=== PATIENT | female | born 1945 | race Caucasian/White ===

== ENCOUNTER 2016-08-04 01:24 | Observation (INO) | payer OTHER ==
[~2016-08-04] VITALS: Ht 160 cm; Wt 65.0 kg
[2016-08-04] VITALS (11 sets, daily range): BP systolic 126–144; BP diastolic 45–76; PULSE 77–92; RESP 18–22; O2SAT 92–100
[~2016-08-04 01:24] MED LIST: ALBU8.5H4 IH; ANT25 PO; ATRINH IH; CENTRUM SILVER PO; CITRICAL PO; DIT5 PO; HYDR1TAB PO; OMEP20TA86 PO; SMV40T PO; SULF500T7 PO; TYL325 PO; VIT D PO
--- NOTE | 2016-08-04 01:40 | ED.REPORT ---
HPI-Chest Pain 40 and Over Date of Service Aug 04, 2016 ED Provider: Jadiel Soria DO Pt is a 71 y.o. female with a hx of recent AL (06/28/16) and COPD who presents to the ED via EMS c/o substernal chest pain onset today. Pt states that when she first noticed the pain she began to take a series of Nitro as prescribed, after the series was completed her pain had only improved mildly but she decided not to contact EMS at this point. Her chest pain then began to rapidly worsen so she called EMS for transport. Pt reports associated SOB and that her chest pain is exacerbated by inspiration. She reports taking Plavix and baby ASA daily.She denies a hx of DVT. Nursing Notes Stated Complaint: CHEST PAIN Chief Complaint: Chest Pain Nursing Notes Reviewed: Yes Allergies: Coded Allergies: formaldehyde (Verified Allergy, Unknown, WHEEZING, 11/27/15) Scheduled ([Centrum Silver]) 1 TAB PO BID ([Citrical + Vit D]) 250 MG PO DAILY Acetaminphen-Expunged Drug, Do Not Renew! (Acetaminphen-Expunged Drug, Do Not Renew!) 325 Mg Tablet 1,300 MG PO BID Omeprazole-Expunged Drug, Do Not Renew! (Omeprazole-Expunged Drug, Do Not Renew! ) 20 Mg Tablet.dr 20 MG PO DAILY Oxybutynin-Expunged Drug, Do Not Renew! (Ditropan-Expunged Drug, Do Not Renew!) 5 Mg Tablet 5 MG PO BID Simvastatin-Expunged Drug, Choose New Med! (Simvastatin-Expunged Drug, Choose New Med!) 40 Mg Tablet 40 MG PO HS Sulfasalazine-Expunged Drug, Do Not Renew! (Sulfasalazine-Expunged Drug, Do Not Renew!) 500 Mg Tablet 1,000 MG PO BID Scheduled PRN Albuterol-Expunged Drug, Do Not Renew! (Albuterol-Expunged Drug, Do Not Renew!) 8.5 Gm Hfa.aer.ad 2 PUFFS IH Q4 PRN PRN Hydrocod/APAP-Expunged, Do Not Renew! (VICODIN 5/500-Expunged Drug, Do Not Renew ) 1 Udtab Tablet 1 UDTAB PO Q4 PRN PRN Ipratropium-Expunged Drug, Do Not Renew! (Ipratropium-Expunged Drug, Do Not Renew!) 200 Puff/12.9 Gm Inhaler 2 PUFFS IH Q8 PRN PRN Meclizine-Expunged Drug, Do Not Renew! (Meclizine-Expunged Drug, Do Not Renew!) 25 Mg Tablet 25 MG PO Q8 PRN PRN General Time Seen by MD: 01:40 Chief Complaint Chest pain Hx Obtained From: Patient Arrived By: Ambulance Sudden in Onset?: Yes Onset Occurred: 1 - 4 hours ago Symptom Duration: Since onset Location: : Substernal Quality: Painful Severity: Current: Moderate Severity: Maximum: Severe Past Medical History Past Medical History Reports: COPD, Hypertension Past Surgical History Reports: Hysterectomy Smoking History Current Every Day Smoker Social History Alcohol Use: Denies alcohol use Drug Use: Denies drug use Occupation son and his and their child live with her. Would like them to get their own place but she feels the child gets better care with her at her house Review of Systems Constitutional: Denies: Chills, Fever Respiratory: Reports: Shortness of breath Cardiovascular: Reports: Chest pain GI: Denies: Diarrhea, Nausea, Vomiting Complete sys rev & neg: except as marked. Physical Exam Initial Vital Signs Vital Signs (First) Date Time Temp Pulse Resp B/P Pulse Ox O2 Delivery O2 Flow Rate FiO2 08/04/16 01:28 37.4 92 20 126/45 92 Room Air Initial VS: Reviewed Head / Eyes: Atraumatic, Normocephalic Extremities: Vascular intact, Neuro intact Skin: Warm, Dry, No cyanosis Neurologic: Alert, Oriented, Nonfocal Psychiatric: Mood/affect normal, Behavior normal, Normal thought content General/Constitutional: Awake, Alert, No acute distress, Well appearing, Well developed, Well hydrated, Well nourished, Not toxic appearing Respiratory / Chest: Atraumatic, Breath sounds NL, Breath sounds = bilat, No respiratory distress Cardiovascular: Heart rate NL, Regular rhythm, Heart sounds NL, Peripheral circulation NL Abdomen: Atraumatic, Soft, No distention Interpretation & Diagnostics Lab Results Interpretation Result Diagram: 08/04/16 0159 Test 08/04/16 01:30 08/04/16 01:59 Hold Purple Top Tube Received (Received) Hold Blue Top Tube Received (Received) Hold Red Top Tube Received (Received) Hold [place] Top Tube Received (Received) White Blood Count 11.8th/mm3 (3.8-10.1) Red Blood Count 2.86mil/mm3 (3.90-5.20) Hemoglobin 9.7g/dL (12.0-15.6) Hematocrit 30.7% (35.0-46.0) Mean Corpuscular Volume 107fL (81-100) Mean Corpuscular Hemoglobin 33.9pg (27.0-35.0) Mean Corpuscular Hemoglobin Concent 31.6% (32.0-37.0) Red Cell Distribution Width 15.7% (12.3-15.4) Platelet Count 281bil/L (150-400) Neutrophils (%) (Auto) 80.2% (40-74) Lymphocytes (%) (Auto) 9.7% (14-46) Monocytes (%) (Auto) 8.4% (4-12) Eosinophils (%) (Auto) 1.3% (0-5) Basophils (%) (Auto) 0.4% (0-3) D-Dimer 1.5mg/L (<0.50) Sodium Level 137mEq/L (134-144) Potassium Level 4.6mEq/L (3.5-5.2) Chloride Level 97mEq/L (97-108) Carbon Dioxide Level 24mmol/L (18-29) Blood Urea Nitrogen 25mg/dL (8-27) Creatinine 1.36mg/dL (0.57-1.00) Estimat Glomerular Filtration Rate 55mL/min (>59) Glucose Level 219mg/dL (60-99) Calcium Level 8.8mg/dL (8.5-10.1) Magnesium Level 1.8mg/dL (1.6-2.6) Total Bilirubin 0.3mg/dL (0.0-1.2) Aspartate Amino Transf (AST/SGOT) 68U/L (0-50) Alanine Aminotransferase (ALT/SGPT) 68U/L (0-32) Alkaline Phosphatase 141U/L (25-165) Troponin T 0.010ug/L (0.0-0.011) Total Protein 6.9g/dL (6.4-8.4) Albumin 3.7g/dL (3.4-5.0) Hold [place] Top Tube Received (Received) X-Ray Chest Interpretation Chest Xray Interpretation: IMPRESSION: No acute cardiopulmonary disease. Interpretation / Wet Read by: Wet read ED physician Re-Eval/Medical Decision Med Decision/Clinical Course 71-year-old female with history of coronary disease and myocardial infarction presents with severe left upper chest pain. She states that tonight the pain came on and it was sharp at first and then dull and achy. There is definitely respiratory component to it. She took 3 nitroglycerin with seemed to help. The pain then returned and was significantly worsened. She presents via EMS. On my examination she has some splinting with respirations. She has some coarse breath sounds bilateral but otherwise very benign examination. She does not have JVD. She does not have friction rub. Please see the remainder of the note for the rest of physical exam. EKG showed sinus rhythm with isoelectric ST segments and no evidence of ST elevation AL. Asked x-ray showed emphysematous changes and possibly atelectasis in the left base but otherwise no acute disease. First troponin is negative. D-dimer is quite elevated. She is currently being medicated with aspirin and a DuoNeb. DuoNeb was ordered because she seems to have developed some faint expiratory wheeze. IV steroids and been ordered as well. She is going to CT PE study here shortly. In the meantime I signed the case out to Dr. Johnson. Source of Hx: Old records Counseled Regarding: Diagnosis, Lab results Discharge & Departure Shift Change Sign-Out Patient Care Transferred: Yes Laboratory Evaluation: Ordered, not yet done Imaging Studies: Ordered, not yet done Procedures: Ordered, not yet done Response to Therapy: Improved Primary Impression: Chest pain Chest pain type: precordial chest pain Qualified Code: R07.2 - Precordial pain Additional Impression: Acute exacerbation of chronic bronchitis Disposition: ADMITTED TO HOSPITAL Discharge Condition All VS Reviewed: Yes Condition: Improved Referrals: OTHER,PHYSICIAN (PCP) Scribe Attestation Portions of this note were transcribed by Monica Plasencia. I, Dr. Soria personally performed the history, physical exam and medical decision-making; I reviewed and confirmed the accuracy of the information in the transcribed note. Signed by : Anand Beavers, 08/04/16 and 0225. Jadiel Soria DO Aug 04, 2016 01:40 MONICA PLASENCIA Aug 04, 2016 01:58
[2016-08-04] MEDS ORDERED: fentaNYL-PF 50 mCg/mL 2 mL Inj IVPUSH PRN (02:05)
[2016-08-04 02:13] LABS: BASOPHILS % (AUTO) 0.4 % (0-3); EOSINOPHILS % (AUTO) 1.3 % (0-5); MONOCYTES % (AUTO) 8.4 % (4-12); Mean Corpuscular Hemoglobin 33.9 pg (27.0-35.0); Mean Corpuscular Volume 107 fL (81-100); NEUTROPHILS % (AUTO) 80.2 % (40-74); Platelet Count 281 bil/L (150-400)
[2016-08-04] MEDS ORDERED: Albuterol-Ipratropium 3 mL Inhalation Solution NEB ONE (02:20)
[2016-08-04] MEDS ORDERED: MethylprednisoLONE Sodium Succinate 62.5 mg/mL 2 mL Inj IVPUSH ONE (02:20)
[2016-08-04] MEDS ORDERED: 0.9% Sodium Chloride 1,000 ML IV ONE (02:20)
[2016-08-04 02:34] LABS: TROPONIN T 0.01 ug/L (0.0-0.011)
[2016-08-04 02:42] LABS: Magnesium 1.8 mg/dL (1.6-2.6)
[2016-08-04] MEDS ORDERED: Alum-Mag Hydrox-Simeth 30 mL Suspension PO PRN (04:35)
[2016-08-04] MEDS ORDERED: Ondansetron 2 mg/mL 2 mL Inj IVPUSH PRN (04:35)
[2016-08-04] MEDS ORDERED: Atropine 1 mg/10 mL (Code) Syringe IVPUSH PRN (04:35)
[2016-08-04] MEDS ORDERED: Polyethylene Glycol (PEG) 17 Gm Powder PO PRN (04:35)
[2016-08-04] MEDS ORDERED: Senna-Docusate 8.6-50 mg Tablet PO PRN (04:35)
[2016-08-04 06:04] LABS: Creatine Kinase 34 U/L (21-215)
[2016-08-04] MEDS: 0.9% Sodium Chloride 1,000 ML IV SCH ×3 (06:38→22:48)
[2016-08-04] MEDS: Heparin 5,000 Unit/mL Inj SUBQ SCH ×2 (07:58→17:53)
[2016-08-04] MEDS: Sodium Chloride LOK Flush 10 mL Syringe IVFLUSH SCH ×2 (07:58→16:30)
--- NOTE | 2016-08-04 09:31 | DRSVH ---
PROCEDURE: X-RAY CHEST ONE VIEW, PORTABLE ([id number]) INDICATIONS: chest pain TECHNIQUE: One view of the chest was acquired. COMPARISON: [facility], CR, XR CHEST 1V PORTABLE, 06/28/2016, 10:11 PM. [facility], CR, CHEST 1VW (PORTABLE), 06/16/2009, 15:18. FINDINGS: Surgical changes and devices: None. Lungs and pleura: No pleural effusions or pneumothorax. Lungs are clear. Mediastinum: Mediastinal contours appear normal. Heart size is normal. Bones and chest wall: No suspicious bony lesions. Overlying soft tissues appear unremarkable. IMPRESSION: No acute cardiopulmonary disease. Dictated by: Tesfaye Thomas [facility] Interpreted: Torres Couch MD on 08/04/2016 at 9:29 Transcribed by: MALLORY on 08/04/2016 at 9:30 Approved by: Torres Couch M.D. on 08/04/2016 at 11:09
[2016-08-04] MEDS ORDERED: ACET325T51 PO (09:46)
[2016-08-04] MEDS ORDERED: MULT-1073 PO (09:46)
--- NOTE | 2016-08-04 09:47 | DRSVH ---
PROCEDURE: CT ANGIO CHEST PULMONARY EMBOLISM ([id number]) INDICATIONS: elevated dimer, sob TECHNIQUE: After the administration of intravenous contrast, 2 mm thick sections acquired from the pulmonary api crow to the posterior costophrenic angles. 3-dimensional maximum intensity projection (MIP) coronal a nd sagittal reformats were then acquired through the thorax. For radiation dose reduction, the follo wing was used: automated exposure control, adjustment of mA and/or kV according to patient size. COMPARISON: [facility], CR, XR CHEST 1VW (PORTABLE), 08/04/2016, 1:37. FINDINGS: Image quality: Excellent. Pulmonary arteries: Pulmonary arteries are normal in size, and demonstrate no intraluminal filling d efects to suggest central pulmonary embolism. Lungs and pleura: There is moderate centrilobular emphysema. Bilateral subpleural interstitial thick ening. A calcified granuloma is present in the right lower. Bibasilar dependent atelectasis are prese nt. No pulmonary infiltrate or consolidation. No pleural effusions or pneumothorax. Central and linda pheral airways are patent. Mediastinum: Heart size is normal, without pericardial effusion. No mediastinal or hilar adenopathy . There is mild to moderate atherosclerosis in coronary artery and thoracic aorta. Mild fusiform dil ation of the mid descending thoracic aorta measures 3.2 cm. There is intramural thrombus along the po sterior lateral descending thoracic aortic wall. Esophagus is normal in caliber, without hiatal herni a. Bones and chest wall: No suspicious bony lesions. Ribs and thoracic spine appear intact throughout. Thyroid gland is normal. No axillary or supraclavicular adenopathy. Abdomen: There is a large superior pole cyst in the left kidney measuring 4.8 cm. Visualized upper a bdominal solid organs appear normal in the early arterial phase of enhancement. IMPRESSION: 1. No evidence for acute central pulmonary embolism. 2. Moderate centrilobular emphysema. 3. Mild mid descending thoracic aortic aneurysm with intramural thrombus along the posterior lateral aortic wall. 4. Large left superior pole renal cyst. No significant discrepancy with the night court magistrate radiology preliminary report. Please note incidental findings not mention in the preliminary report. Dictated by: Torres Couch M.D. on 08/04/2016 at 9:35 Transcribed by: FAOROQ on 08/04/2016 at 9:47 Approved by: Torres Couch M.D. on 08/04/2016 at 10:50
[2016-08-04] MEDS ORDERED: CYAN10008 PO (09:51)
[2016-08-04] MEDS ORDERED: OMEG1CAP56 PO (09:51)
[2016-08-04] MEDS ORDERED: OXYB5TAB10 PO (09:53)
[2016-08-04] MEDS ORDERED: OMEP20CA11 PO (09:59)
[2016-08-04] MEDS ORDERED: ATOR40TA69 PO (09:59)
[2016-08-04] MEDS ORDERED: MECL-114 PO (09:59)
[2016-08-04] MEDS ORDERED: CALC-140 PO (10:06)
[2016-08-04] MEDS ORDERED: METF-777 PO (10:06)
[2016-08-04] MEDS ORDERED: LORA10CA PO (10:06)
[2016-08-04] MEDS ORDERED: HYDR12.5 PO (10:06)
[2016-08-04] MEDS ORDERED: AZU500 PO (10:06)
[2016-08-04] MEDS ORDERED: ALBU8.5H2 IH (10:15)
[2016-08-04] MEDS ORDERED: ALBU6.7H INH (10:15)
[2016-08-04] MEDS ORDERED: FERR-83 PO (10:33)
[2016-08-04] MEDS ORDERED: LISI-567 PO (10:33)
[2016-08-04] MEDS ORDERED: METO50TA3 PO (10:33)
[2016-08-04] MEDS ORDERED: POTA20PA12 PO (10:33)
[2016-08-04] MEDS ORDERED: NITR0.4T6 PO (10:33)
[2016-08-04] MEDS ORDERED: FURO40TA4 PO (10:33)
[2016-08-04] MEDS ORDERED: MAGN400T23 PO (10:33)
[2016-08-04 11:26] LABS: Creatine Kinase 32 U/L (21-215)
[2016-08-04 11:31] LABS: TROPONIN T < 0.010 ug/L (0.0-0.011)
--- NOTE | 2016-08-04 12:46 | DRSVH ---
[facility] [address] [place] [address] Echocardiogram Report Name: NEHA VÁZQUEZ PStudy Date: 08/04/2016 Height: 63 in Hospital Exam Location: [facility] Weight: 143 lb Gender: Female BSA: 1.7 m2 : 1945 Age: 71 yrs BP: 144/46 mmHg Reason For Study: Chest pain Ordering Physician: Performed By: Letitia Trinidad Referring Physician: [facility] Interpretation Summary Normal left ventricle size with ejection fraction 60-65%. Grade I diastolic dysfunction. Moderate aortic valve sclerosis. No valvular regurgitation. Procedure: A two-dimensional transthoracic echocardiogram with color flow and Doppler was performed. The study quality was technically adequate. The patient was in normal sinus rhythm during the exam. Left Ventricle: The left ventricle is normal in size. There is normal left ventricular wall thickness. The ejection fraction is estimated to be 60-65%. There are no focal wall motion abnormalities. The E/A ratio is reversed with an elevated E/E', suggesting impaired early relaxation of the left ventricle with possible increased filling pressures. Right Ventricle: The right ventricle is normal in size and function. Atria: Both atria are normal in size. There is no Doppler evidence for an interatrial shunt. Mitral Valve: The mitral valve leaflets appear thickened, but open well. There is no mitral regurgitation noted. Aortic Valve: The aortic valve is trileaflet. The aortic valve is mildly calcified. There is moderate aortic valve sclerosis. No aortic regurgitation is present. Tricuspid Valve: The tricuspid valve is not well visualized, but is grossly normal. Pulmonary artery pressures cannot be estimated because of the lack of a measurable TR jet velocity. Pulmonic Valve: The pulmonic valve is not well seen, but is grossly normal. There is a trace or physiologic amount of pulmonic regurgitation. Great Vessels: The aortic root is normal size. The ascending aorta is normal in size. The aortic arch could not be visualized. The IVC is of normal diameter and collapses greater than 50% with a sniff. This suggests a low right atrial pressure of 3 mm Hg. Pericardium/ Pleura There is an anterior echo-free space consistent with a fat pad. MMode/2D Measurements & Calculations LVIDd: 4.4 cm RA long axis LVOT diam LVIDs: 2.9 cm LA A2 area: 14.3 cm FS: 34.7 % LA A4 area: 15.4 cm RA area Ao root diam IVSd: 0.85 cm LA length (vol): 5.1 cm LVPWd: 0.99 cm LA vol: 36.4 ml : 9.3 cm Aortic Jxn LA vol index RA vol: 19.5 ml RA asc Aorta : 11.6 mm2 Diam: 3.1 cm IVC diam: 1.6 cm LV marquez. diameter/BSA LV sys. diameter/BSA (cm/m^2): 2.7 (cm/m^2): 1.7 Doppler Measurements & Calculations Ao V2 max MV E max wiflredo MV E/A: 0.76 PA V2 max : 200.9 cm/sec : 90.8 cm/sec Med Peak E' Wilfredo : 92.1 cm/sec Ao max PG MV A max wilfredo PA mean PG : 16.1 mmHg : 119.9 cm/sec E/E' med: 23.8 Ao mean PG MV P1/2t: 58.4 msec Lat Peak E' Wilfredo PA Accel Time : 0.11 sec LVOT Max Wilfredo E/E' lat: 14.4 : 71.8 cm/sec E/e' average: 19.1 Pulm A Revs Dur MINA(I,D): 1.2 cm sev ratio MV A dur: 0.12 sec MV dec time MV P1/2t max wilfredo Ao V2 mean LV V1 max PG : 0.20 sec : 140.0 cm/sec MVA(P1/2t): 3.8 cm2 Ao V2 VTI: 41.9 cm LV V1 VTI MINA(V,D): 1.1 cm2 : 16.3 cm PA V2 mean MINA indexed to BSA Anupam Quintero Dur - MV A : 63.7 cm/sec (cm^2/m^2): 0.72 Dur: -0.04 msec Electronically signed by: Estella Chaves on Reading Physician:08/04/2016 12:45 PM
--- NOTE | 2016-08-04 13:11 | NUR ---
Social Work- Initial Assessment/Readiness for Discharge Data: Pt is a 71 y/o female admitted on 08/04/16 for chest pain resolved SOB per EMR. Insurance is [place] and PCP is [facility]. EMR reviewed. Pt's readmit risk score is not available. PERRY met with pt and her son Mark at bedside to discuss discharge planning. PERRY role explained. Pt is oriented x3. [place] [id number], and grandchild. Unit is one level with two steps to enter. Pt remains independent with ADL's, drives POV and uses no DME. Pt has no HH or SNF history. Pt has received DPOA/Advance Directive paperwork and plans to complete and provide hospital with a copy. Per rounds this morning pt is likely to discharge tomorrow. Pt's family to provide transport home at discharge. SW provided phone number and plan on white board in room. SW will continue to follow. Assessment: Pt who resides with family and is independent at baseline. P: Patient likely to discharge home tomorrow via POV with no needs. SUJATA Marcano Addendum: 08/04/16 at 1324 by SAMANTHA CAM SS Amended: Links added.
--- NOTE | 2016-08-04 14:06 | PCM.HPMED ---
Subjective Date of Service Aug 04, 2016 Primary Provider: Admitting Physician: Dewayne Otero MD [facility] Phys[facility] Attending Physician: Dewayne Otero MD Chief Complaint: chest pain History of Present Illness: 71 year old female with history of DM, COPD, CAD (nonobstructive per recent cath on 06/2016) who was recently hospitalized at [facility] on 06/2016 with diagnosis of NSTEMI, NICM, and non-obstructive CAD presents with complaint of acute left sided chest pain. She notes that the left sided chest pain began yesterday afternoon after eating an apple pie. She took three SL NTG before the pain subsided. However, she had reoccurrence of the pain again late last night that persisted till this morning. She notes that the pain is worse with deep breathing and somewhat sharp in nature. She otherwise denies any other associated symptoms such as nausea, vomiting, diaphoresis, SOB, lightheadedness , or palpitations. The pain is non-radiating. ROS is otherwise negative except patient reporting about 18 lb unintentional weight loss over the past 6-7 months and somewhat chronic shooting pain and paraesthesia down the left hip and thigh. Allergies Coded Allergies: formaldehyde (Verified Allergy, Severe, Wheezing and cannot breathe, ) Home Medications Loratadine 10 Mg Capsule (Claritin) 10 Mg PO DAILY Anti-Infective Agents Sulfasalazine 500 Mg Tablet 1,000 Mg PO BID Autonomic Drugs Albuterol HFA 8.5 Gm Hfa.Aer.Ad (Proair HFA) 2 Puff IH TID Albuterol Sulfate 6.7 Gm Hfa.Aer.Ad (Proventil HFA Inhaler) 2 Puff INH Q4 PRN PRN For Wheezing PRN For Wheezing Blood Formation,Coagulation & Ferrous Sulfate 325 Mg Tablet 325 Mg PO DAILY Cardiovascular Drugs Atorvastatin Calcium 40 Mg Tablet 40 Mg PO DAILY Cholesterol Cholesterol Lisinopril 20 Mg Tablet 20 Mg PO DAILY Metoprolol Tartrate 50 Mg Tablet 50 Mg PO BID Nitroglycerin SL 0.4 Mg Tab.Subl 0.4 Mg PO PRN PRN For Chest Pain PRN For Chest Pain [place]-3 Fatty Acids/Fish Oil 1 Each Capsule ([place] 3 1,000 mg Softgel) 1 Capsule PO DAILY Central Nervous System Agents Acetaminophen 325 Mg Tablet 650 Mg PO BID Calcium Carbonate/Vitamin D3 1 Each Tablet (Calcium + Vitamin D Tablet) 1 Tablet PO DAILY Calcium-D3 1200 mg-1000IU Furosemide 40 Mg Tablet 40 Mg PO DAILY Hydrochlorothiazide 12.5 Mg Capsule 12.5 Mg PO DAILY Potassium Chloride 20 Meq Packet (Potassium Chloride Powder) 20 Meq PO BIDWM Gastrointestinal Drugs Magnesium Oxide 400 Mg Tablet (Mag-Oxide) 400 Mg PO DAILY Meclizine 25 Mg Tab.Chew ([place]) 25 Mg PO TID PRN PRN For Dizziness PRN For Dizziness Omeprazole 20 Mg Capsule.Dr 20 Mg PO DAILY Stomach acid Stomach acid Take 1 capsule by mouth before BREAKFAST Hormones And Synthetic Substit Metformin HCl 500 Mg Moittgh16p (Metformin HCl ER) 500 Mg PO BID Smooth Muscle Relaxants Oxybutynin Chloride 5 Mg Tablet 5 Mg PO BID Bladder spasm Bladder spasm Exam Vital Signs & I/O Vital Sign- Last 8 Hours Date Time Temp Pulse Resp B/P Pulse Ox O2 Delivery O2 Flow Rate FiO2 08/04/16 10:57 36.4 84 20 134/76 98 Room Air 08/04/16 10:45 84 Intake and Output- Last 8 Hour 08/04/16 Cumulative From/Thru 07:00 08/04/16 01:28 - 08/04/16 05:36 Intake Total 1000 ml 1000 ml Balance 1000 ml 1000 ml Intake IV Total 1000 ml 1000 ml Lab & Micro Results Laboratory Tests Test 08/04/16 01:30 08/04/16 01:59 08/04/16 04:53 08/04/16 10:28 Hold Purple Top Tube Received (Received) Hold Blue Top Tube Received (Received) Hold Red Top Tube Received (Received) Hold [place] Top Tube Received (Received) White Blood Count 11.8th/mm3 (3.8-10.1) Red Blood Count 2.86mil/mm3 (3.90-5.20) Hemoglobin 9.7g/dL (12.0-15.6) Hematocrit 30.7% (35.0-46.0) Mean Corpuscular Volume 107fL (81-100) Mean Corpuscular Hemoglobin 33.9pg (27.0-35.0) Mean Corpuscular Hemoglobin Concent 31.6% (32.0-37.0) Red Cell Distribution Width 15.7% (12.3-15.4) Platelet Count 281bil/L (150-400) Neutrophils (%) (Auto) 80.2% (40-74) Lymphocytes (%) (Auto) 9.7% (14-46) Monocytes (%) (Auto) 8.4% (4-12) Eosinophils (%) (Auto) 1.3% (0-5) Basophils (%) (Auto) 0.4% (0-3) D-Dimer 1.5mg/L (<0.50) Sodium Level 137mEq/L (134-144) Potassium Level 4.6mEq/L (3.5-5.2) Chloride Level 97mEq/L (97-108) Carbon Dioxide Level 24mmol/L (18-29) Blood Urea Nitrogen 25mg/dL (8-27) Creatinine 1.36mg/dL (0.57-1.00) Estimat Glomerular Filtration Rate 55mL/min (>59) Glucose Level 219mg/dL (60-99) Calcium Level 8.8mg/dL (8.5-10.1) Magnesium Level 1.8mg/dL (1.6-2.6) Total Bilirubin 0.3mg/dL (0.0-1.2) Aspartate Amino Transf (AST/SGOT) 68U/L (0-50) Alanine Aminotransferase (ALT/SGPT) 68U/L (0-32) Alkaline Phosphatase 141U/L (25-165) Troponin T 0.010ug/L (0.0-0.011) 0.010ug/L (0.0-0.011) < 0.010ug/L (0.0-0.011) Total Protein 6.9g/dL (6.4-8.4) Albumin 3.7g/dL (3.4-5.0) Hold [place] Top Tube Received (Received) Total Creatine Kinase 34U/L (21-215) 32U/L (21-215) Creatine Kinase MB 1.1ng/mL (0.0-5.3) 1.0ng/mL (0.0-5.3) Creatine Kinase MB % % (0.0-5.0) % (0.0-5.0) Result Diagram: 08/04/16 0159 08/04/16 0159 Review of Systems: Constitutional: Negative, except as otherwise mentioned in the history above. Ophthalmologic: Negative, except as otherwise mentioned in the history above. Cardiovascular: Negative, except as otherwise mentioned in the history above. Respiratory: Negative, except as otherwise mentioned in the history above. Gastrointestinal: Negative, except as otherwise mentioned in the history above. Genitourinary: Negative, except as otherwise mentioned in the history above. Musculoskeletal: Negative, except as otherwise mentioned in the history above. Neurological: Negative, except as otherwise mentioned in the history above. Psychiatric: Negative, except as otherwise mentioned in the history above. Hematologic/Lymphatic: Negative, except as otherwise mentioned in the history above. Allergic/Immunologic: Negative, except as otherwise mentioned in the history above. PMH 1. NSTEMI (with noted mildly elevated Trop during hospitalization at [facility] on 06/2016) 2. NICM (LVEF 37-40% on GBMT per d/c summary from 06/2016) 3. CAD (nonobstructive per cath report on 06/2016) 4. DM II 5. COPD 6. Arthritis Cardiac cath at [facility] from 06/2016: " Moderate diffusely calcified coronary arteries. Mild coronary artery disease involving all coronaries. No focal flow limiting lesions." Surgical History post bilateral salpingo-oophorectomy with resulting bladder damage in distant past Family History Father with lung cancer Social History Hx Alcohol Use: No Hx Substance Use: No Hx Tobacco Use: Yes (smoked 3-4 packs of cig per day until Jun 2016.) Smoking Status: Former Smoker Exam Vital Signs Vital Sign - Last Date Time Temp Pulse Resp B/P Pulse Ox O2 Delivery O2 Flow Rate FiO2 08/04/16 10:57 36.4 84 20 134/76 98 Room Air Intake and Output 08/03/16 08/03/16 08/04/16 Cumulative From/Thru 15:00 23:00 07:00 08/04/16 01:28 - 08/04/16 05:36 Intake Total 1000 ml 1000 ml Balance 1000 ml 1000 ml Intake IV Total 1000 ml 1000 ml General: Alert, Oriented X3, Cooperative, No Acute Distress Head: Normal Eyes: PERRLA, EOMI, Scleral Anicteric Nose: Mucous Membr Moist/[place] Mouth: Mucous Membr Moist/[place] Neck: Supple Chest & Lungs: Chest Wall Normal, Clear to auscultation & percussion Cardiovascular: Regular Rate/Rhythm Pulses: NL carotid, radial, femoral, DP, PT Abdomen: Non-tender, Non-distended, Normoactive bowel tones, Soft Extremities: No cyanosis/clubbing/edma bilat Skin: Other (no ulcer or rash) Neurological: Grossly Neurologically Intact, Normal Speech Lab and Diagnostics Result Diagram: 08/04/1615808/04/16158 X-Rays, CTs and MRIs Date of Service: 08/04/16 0125 PROCEDURE: X-RAY CHEST ONE VIEW, PORTABLE ([id number]) IMPRESSION: No acute cardiopulmonary disease. Dictated by: Tesfaye Thomas RRA Interpreted: Torres Couch MD on 08/04/2016 at 9:29 Transcribed by: MALLORY on 08/04/2016 at 9:30 Approved by: Torres Couch M.D. on 08/04/2016 at 11:09 Date of Service: 08/04/16 0252 PROCEDURE: CT ANGIO CHEST PULMONARY EMBOLISM ([id number]) IMPRESSION: 1. No evidence for acute central pulmonary embolism. 2. Moderate centrilobular emphysema. 3. Mild mid descending thoracic aortic aneurysm with intramural thrombus along the posterior lateral aortic wall. 4. Large left superior pole renal cyst. 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 Please note incidental findings not mention in the preliminary report. Dictated by: Torres Couch M.D. on 08/04/2016 at 9:35 Transcribed by: FAROOQ on 08/04/2016 at 9:47 Approved by: Torres Couch M.D. on 08/04/2016 at 10:50 12-lead ECG NSR. no significant ST elevation or depression Cardiac Echo Impressions Date of Service: 08/04/16 0800 Echocardiogram Report Interpretation Summary Normal left ventricle size with ejection fraction 60-65%. Grade I diastolic dysfunction. Moderate aortic valve sclerosis. No valvular regurgitation. Electronically signed by: Estella Chaves on Reading Physician:08/04/2016 12:45 PM Assessment & Plan 71 year old female with history of DM, COPD, CAD (nonobstructive per recent cath on 06/2016) presenting with pleuritic chest pain. # Acute chest pain. present on admission. - unclear etiology - pulmonary embolism ruled out with negative CTA chest - rule out ACS by cycling Trop - Echo unremarkable with intact EF despite report of reduced EF of 30% per ventriculography from recent hospitalization on 06/2016 at [facility] - She had negative cardiac cath between 06/30 adn 07/05/2016. will not pursue any further cardiac workup at this time if her Trop continue to remain negative - c/w supportive care and pain control as needed # Recent report of non-ischemic cardiomyopathy, present on admission - appears resolved per echocardiogram earlier today - will stop Lisinopril and diuretics given evidence of CARLI at this time # Acute kidney injury, present on admission. - likely pre-renal from recent diuretic medications - hold nephrotoxic meds - gentle IVF - f/u repeat labs in am - check UA # History of diabetes mellitus - hold home metformin - ISS - check HgA1C # History of COPD. stable - c/w home inhalers as needed # History of non-obstructive CAD. presumed stable - c/w home dose ASA, Statin and metoprolol - further w/u as noted above Expected length of hospital stay at this time is less than 2 midnights and likely home tomorrow pending resolution of CARLI and CP GI Prophylaxis: Proton Pump Inhibitor VTE Prophylaxis: Sub-Q Heparin (Unfractionated) Resuscitation Status: CPR: Attempt Resuscitation (discussed and verified with patient) Time spent 65 min Wolfgang Mane Aug 04, 2016 14:06
[2016-08-04] MEDS ORDERED: Albuterol 2.5 mg/3 mL Inhalation Solution NEB PRN (14:39)
[2016-08-04] MEDS: Insulin LISPRO Low-Dose Scale SUBQ SCH ×2 (17:00→22:00)
[2016-08-04] MEDS ORDERED: Insulin Human REGular 300 Unit/3 mL Inj SUBQ SCH (17:00)
--- NOTE | 2016-08-04 17:37 | NUR ---
No CP, Blood sugars No CPs this shift, intermittent achiness "Not anything like before". Blood sugars elevated, provider notified. SS insulin ordered. BS trending down this shift without intervention.
[2016-08-04 18:22] LABS: APPEARANCE,URINE CLEAR (CLEAR,HAZY); COLOR,URINE YELLOW (YELLOW); OCCULT BLOOD,URINE SMALL (NEGATIVE); UROBILINOGEN,URINE NORMAL (NORMAL)
[2016-08-04] MEDS ORDERED: Sulfasalzine 500 mg Tablet PO SCH (20:30)
--- NOTE | 2016-08-04 23:31 | NUR ---
Note No c/o chest pain/discomfort. Telemetry SR in 70s. Up using bsc independently. Report to [facility] RN given.
[2016-08-05] MEDS: Sodium Chloride LOK Flush 10 mL Syringe IVFLUSH SCH ×2 (00:30→08:30)
[2016-08-05] MEDS: Heparin 5,000 Unit/mL Inj SUBQ SCH ×2 (00:30→09:43)
[2016-08-05 01:20] VITALS: BP 130/66; PULSE 57; RESP 18; O2SAT 95
[2016-08-05 04:55] VITALS: BP 171/62; PULSE 67; O2SAT 95
[2016-08-05] MEDS ORDERED: Pantoprazole 40 mg ER24 Tablet PO SCH (06:30)
--- NOTE | 2016-08-05 06:46 | NUR ---
Noc activity Pt denies chest pain, sob, n/v or abd discomfort. VSS and pt has been afebrile overnight. Monitor karl reports no abnormal rhythmic episodes. Intentional hourly rounding done and pt has slept most of the night.
[2016-08-05 07:03] LABS: BASOPHILS % (AUTO) 0.5 % (0-3); EOSINOPHILS % (AUTO) 2.8 % (0-5); MONOCYTES % (AUTO) 9.4 % (4-12); Mean Corpuscular Hemoglobin 34.2 pg (27.0-35.0); Mean Corpuscular Volume 105.6 fL (81-100); Platelet Count 279 bil/L (150-400)
[2016-08-05] MEDS: Insulin LISPRO Low-Dose Scale SUBQ SCH (07:30)
[2016-08-05 09:54] VITALS: BP 175/68; PULSE 76; RESP 20; O2SAT 98
[2016-08-05 10:07] VITALS: PULSE 67
--- NOTE | 2016-08-05 10:13 | PCM.DIMED ---
Discharge Instructions Date of Service Aug 05, 2016 Dates of Hospitalization Aug 04, 2016 at 04:47 Discharge Diagnosis Discharge Diagnosis # Acute chest pain. present on admission. Resolved - unclear etiology - pulmonary embolism ruled out with negative CTA chest - ruled out acute myocardial infarction with negative cardiac enzymes (Troponin) - Echocardiogram: "Normal left ventricle size with ejection fraction 60-65%." # Acute kidney injury, present on admission. - likely pre-renal from recent diuretic medications - Resolved with IV fluids. # Acute transaminitis of unclear etiology. present on admission. - Need to followup with primary care provider for further workup or to ensure resolution. # Positive bacteruria and possible asymptomatic urinary tract infection. present on admission - final urine cultures pending at time of discharge and need to be followed up with primary care provider in coming days # History of diabetes mellitus. stable - HgA1C 5.2 # History of COPD. stable # History of non-obstructive CAD. presumed stable Diet Low fat, Low Sodium, Heart Healthy, Diabetic Activity No restrictions Call your provider Fever or Chills, Shortness of breath, Chest pain, Vomitting Patient Instructions Seek immediate medical attention if any new or worsening signs or symptoms occur Follow-up plan 1. Followup with primary care provider in 2-5 days to followup on final urine culture result, followup on liver enzymes, and adjust medications as needed. 2. Followup with your cardiac monitor technician as soon as possible. Follow-up Provider: ANNETTE FLORESTX Wolfgang Musa Aug 05, 2016 10:13
--- NOTE | 2016-08-05 10:31 | NUR ---
Social Work: Discharge Data: Pt is on day 1 of hospitalization. EMR reviewed. D/C orders are in. No d/c planning needs at this time. SOLAR MANUFACTURER'S REPRESENTATIVE will continue to follow if needs arise. Assessment: Pt who is independent at baseline. Plan: Pt will d/c home via POV today. No d/c planning needs at this time. SOLAR MANUFACTURER'S REPRESENTATIVE will continue to follow if needs arise. SUJATA De Paz
--- NOTE | 2016-08-05 12:20 | NUR ---
Discharge: Patient discharged to home @ approx 1200. IV d/c'd intact, telemetry removed, case monitor notified. Personal belongings sent home with patient. Reviewed home medication list, d/c instructions and follow up appointments. Verbalized understanding. Escorted to main entrance via wheelchair accompanied by family and COORDINATOR OF PLACEMENT.
--- NOTE | 2016-08-05 16:55 | PCM.DC.MED ---
Discharge Summary Date of Service Aug 05, 2016 Dates of Hospitalization Date of Hospital Admission Aug 04, 2016 at 04:47 Date of Discharge: Aug 05, 2016 Providers: Admitting Physician: Dewayne Otero MD [facility]ending Phys[facility]: Dewayne Otero MD Diagnosis at Time of Discharge Diagnosis at Time of Discharge # Acute chest pain. present on admission. Resolved - unclear etiology - pulmonary embolism ruled out with negative CTA chest - ruled out acute myocardial infarction with negative cardiac enzymes (Troponin) - Echocardiogram: "Normal left ventricle size with ejection fraction 60-65%." # Acute kidney injury, present on admission. - likely pre-renal from recent diuretic medications - Resolved with IV fluids. # Acute transaminitis of unclear etiology. present on admission. - Need to followup with primary care provider for further workup or to ensure resolution. # Positive bacteruria and possible asymptomatic urinary tract infection. present on admission - final urine cultures pending at time of discharge and need to be followed up with primary care provider in coming days # History of diabetes mellitus. stable - HgA1C 5.2 # History of COPD. 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 Dictated by: Tesfaye Thomas [facility] Interpreted: Torres Couch MD on 08/04/2016 at 9:29 Transcribed by: MALLORY on 08/04/2016 at 9:30 Approved by: Torres Couch M.D. on 08/04/2016 at 11:09 Date of Service: 08/04/16 0252 PROCEDURE: CT ANGIO CHEST PULMONARY EMBOLISM ([id number]) IMPRESSION: 1. No evidence for acute central pulmonary embolism. 2. Moderate centrilobular emphysema. 3. Mild mid descending thoracic aortic aneurysm with intramural thrombus along the posterior lateral aortic wall. 4. Large left superior pole renal cyst. 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 Please note incidental findings not mention in the preliminary report. Dictated by: Torres Couch M.D. on 08/04/2016 at 9:35 Transcribed by: FAROOQ on 08/04/2016 at 9:47 Approved by: Torres Couch M.D. on 08/04/2016 at 10:50 ECG 12 Lead [address]. no significant ST elevation or depression Cardiac Echo Impression Date of Service: 08/04/16 0800 Echocardiogram Report Interpretation Summary Normal left ventricle size with ejection fraction 60-65%. Grade I diastolic dysfunction. Moderate aortic valve sclerosis. No valvular regurgitation. Electronically signed by: Estella Chaves on Reading Physician:08/04/2016 12:45 PM Brief History 71 year old female with history of DM, COPD, CAD (nonobstructive per recent cath on 06/2016) who was recently hospitalized at [facility] on 06/2016 with diagnosis of NSTEMI, NICM, and non-obstructive CAD presents with complaint of acute left sided chest pain. She notes that the left sided chest pain began yesterday afternoon after eating an apple pie. She took three SL NTG before the pain subsided. However, she had reoccurrence of the pain again late last night that persisted till this morning. She notes that the pain is worse with deep breathing and somewhat sharp in nature. She otherwise denies any other associated symptoms such as nausea, vomiting, diaphoresis, SOB, lightheadedness , or palpitations. The pain is non-radiating. ROS is otherwise negative except patient reporting about 18 lb unintentional weight loss over the past 6-7 months and somewhat chronic shooting pain and paraesthesia down the left hip and thigh. Hospital Course # Acute chest pain. present on admission. - unclear etiology - pulmonary embolism ruled out with negative CTA chest - ruled out ACS by cycling Trop - Echo unremarkable with intact EF despite report of reduced EF of 30% per ventriculography from recent hospitalization on 06/2016 at [facility] - She had negative cardiac cath between 06/30 adn 07/05/2016. will not pursue any further cardiac workup at this time - c/w home cardiac meds and f/u w/ cardiology as outpatient as previously planned # Recent report of non-ischemic cardiomyopathy, present on admission - appears resolved per echocardiogram during this hospital # Acute kidney injury, present on admission. - likely pre-renal from recent diuretic medications - Resolved with gentle IVF - further f/u as outpatient # Acute transaminitis of unclear etiology. present on admission. - pt insists on being discharged today and wishes to f/u w/ PCP as outpatient - Need to followup with primary care provider for further workup or to ensure resolution. # Positive bacteruria and possible asymptomatic urinary tract infection. present on admission - final urine cultures pending at time of discharge and need to be followed up with primary care provider in coming days - given otherwise asymptomatic no Abx started at this time # History of diabetes mellitus - HgA1C 5.2 # History of COPD. stable - c/w home inhalers as needed # History of non-obstructive CAD. presumed stable - c/w home dose ASA, Statin and metoprolol - further w/u as noted above by day of d/c lungs CTA bilat. Abdomen soft, nt, nd, +bs. CV: RRR. Exam Vital Signs (Last) Date Time Temp Pulse Resp B/P Pulse Ox O2 Delivery O2 Flow Rate FiO2 08/05/16 10:07 67 08/05/16 09:54 36.5 20 175/68 98 Room Air Test 08/04/16 01:30 08/04/16 01:59 08/04/16 10:28 08/04/16 17:55 Hold Purple Top Tube Received (Received) Hold Blue Top Tube Received (Received) Hemoglobin A1c 5.2% (4.8-5.6) Hold Red Top Tube Received (Received) Hold [place] Top Tube Received (Received) D-Dimer 1.5mg/L (<0.50) Hold [place] Top Tube Received (Received) Total Creatine Kinase 32U/L (21-215) Creatine Kinase MB 1.0ng/mL (0.0-5.3) Creatine Kinase MB % % (0.0-5.0) Troponin T < 0.010ug/L (0.0-0.011) Urine Color Yellow (YELLOW) Urine Appearance Clear (CLEAR,HAZY) Urine pH 7.0 (5.0-8.0) Urine Specific [place] <1.005 (1.003-1.035) Urine Protein Negativemg/dL (NEG,TRACE) Urine Glucose (UA) Negativemg/dL (NEGATIVE) Urine Ketones Negativemg/dL (NEGATIVE) Urine Occult Blood Small (NEGATIVE) Urine Nitrite Negative (NEGATIVE) Urine Bilirubin Negative (NEGATIVE) Urine Urobilinogen Normalmg/dL (NORMAL) Urine Leukocyte Esterase Small (NEGATIVE) Urine RBC 0-2/hpf (0-2) Urine WBC >50/hpf (0-5) Urine Epithelial Cells Few/hpf (NONE-MOD) Urine Crystals None seen (NONE SEEN) Urine Bacteria Few/hpf (NONE-FEW) Urine Hyaline Casts None/lpf (NONE) Urine Granular Casts None seen (NONE SEEN) Urine Waxy Casts None seen (NONE SEEN) Urine Red Blood Cell Casts None seen (NONE SEEN) Urine White Blood Cell Casts None seen (NONE SEEN) Urine Mucus None seen (None Seen) Urine Trichomonas None seen (NONE SEEN) Urine Yeast None (NONE SEEN) Urinalysis Comment None Urine Culture Reflexed Indicated Test 08/05/16 06:20 White Blood Count 7.9th/mm3 (3.8-10.1) Red Blood Count 2.69mil/mm3 (3.90-5.20) Hemoglobin 9.2g/dL (12.0-15.6) Hematocrit 28.4% (35.0-46.0) Mean Corpuscular Volume 105.6fL (81-100) Mean Corpuscular Hemoglobin 34.2pg (27.0-35.0) Mean Corpuscular Hemoglobin Concent 32.4% (32.0-37.0) Red Cell Distribution Width 15.3% (12.3-15.4) Platelet Count 279bil/L (150-400) Neutrophils (%) (Auto) 62.0% (40-74) Lymphocytes (%) (Auto) 24.9% (14-46) Monocytes (%) (Auto) 9.4% (4-12) Eosinophils (%) (Auto) 2.8% (0-5) Basophils (%) (Auto) 0.5% (0-3) Sodium Level 140mEq/L (134-144) Potassium Level 4.7mEq/L (3.5-5.2) Chloride Level 104mEq/L (97-108) Carbon Dioxide Level 23mmol/L (18-29) Blood Urea Nitrogen 23mg/dL (8-27) Creatinine 1.00mg/dL (0.57-1.00) Estimat Glomerular Filtration Rate 79mL/min (>59) Glucose Level 106mg/dL (60-99) Calcium Level 9.0mg/dL (8.5-10.1) Magnesium Level 2.0mg/dL (1.6-2.6) Total Bilirubin 0.5mg/dL (0.0-1.2) Aspartate Amino Transf (AST/SGOT) 72U/L (0-50) Alanine Aminotransferase (ALT/SGPT) 110U/L (0-32) Alkaline Phosphatase 121U/L (25-165) Total Protein 6.2g/dL (6.4-8.4) Albumin 3.4g/dL (3.4-5.0) Triglycerides Level 85mg/dL (0-149) Cholesterol Level 170mg/dL (100-199) LDL Cholesterol, Calculated 86.000mg/dL (0-99) VLDL Cholesterol 17.000mg/dL HDL Cholesterol 67mg/dL (>39) Cholesterol/HDL Ratio 2.54 (0.0-4.4) Discharge Medications Discharge Medications Acetaminophen (Acetaminophen) 325 Mg Tablet 650 MG PO BID (Reported) Albuterol HFA (Proair HFA) 8.5 Gm Hfa.aer.ad 2 PUFF IH TID (Reported) Atorvastatin Calcium (Atorvastatin Calcium) 40 Mg Tablet 40 MG PO DAILY ( Reported) Calcium Carbonate/Vitamin D3 (Calcium + Vitamin D Tablet) 1 Each Tablet 1 TABLET PO DAILY (Reported) Calcium-D3 1200 mg-1000IU Cyanocobalamin (Vitamin B-12) (Vitamin B-12) 1,000 Mcg Tablet 1,500 MCG PO DAILY (Reported) Ferrous Sulfate (Ferrous Sulfate) 325 Mg Tablet 325 MG PO DAILY (Reported) Hydrochlorothiazide (Hydrochlorothiazide) 12.5 Mg Capsule 12.5 MG PO DAILY ( Reported) Lisinopril (Lisinopril) 20 Mg Tablet 20 MG PO DAILY (Reported) Loratadine (Claritin) 10 Mg Capsule 10 MG PO DAILY (Reported) Magnesium Oxide (Mag-Oxide) 400 Mg Tablet 400 MG PO DAILY (Reported) Metformin HCl (Metformin HCl ER) 500 Mg [id number] 500 MG PO BID (Reported) Metoprolol Tartrate (Metoprolol Tartrate) 50 Mg Tablet 50 MG PO BID (Reported) Multivits-Min/FA/Lycopene/Lut (Centrum Silver Tablet) 1 Each Tablet 1 TABLET PO DAILY (Reported) [place]-3 Fatty Acids/Fish Oil ([place] 3 1,000 mg Softgel) 1 Each Capsule 1 CAPSULE PO DAILY (Reported) Omeprazole (Omeprazole) 20 Mg Capsule.dr 20 MG PO DAILY (Reported) Take 1 capsule by mouth before BREAKFAST Oxybutynin Chloride (Oxybutynin Chloride) 5 Mg Tablet 5 MG PO BID (Reported) Sulfasalazine (Sulfasalazine) 500 Mg Tablet 1,000 MG PO BID (Reported) As needed Albuterol Sulfate (Proventil HFA Inhaler) 6.7 Gm Hfa.aer.ad 2 PUFF INH Q4 PRN PRN For Wheezing (Reported) Meclizine (Bonine) 25 Mg Tab.chew 25 MG PO TID PRN PRN For Dizziness (Reported) Nitroglycerin SL (Nitroglycerin SL) 0.4 Mg Tab.subl 0.4 MG PO PRN For Chest Pain (Reported) Followup Plan Disposition: Home Follow-up plan 1. Followup with primary care provider in 2-5 days to followup on final urine culture result, followup on liver enzymes, and adjust medications as needed. 2. Followup with your corporate law assistant as soon as possible. Discharge Diet: Low fat, Low Sodium, Heart Healthy, Diabetic Discharge Activity: No restrictions Patient Instructions Seek immediate medical attention if any new or worsening signs or symptoms occur Follow-up Provider: ANNETTE FLORESCA SABA Time spent 35 min copies to: [facility] Wolfgang Mane Aug 05, 2016 16:55
== END 2016-08-05 12:10 | disposition home or self-care (01) ==
LOC: SED 01:24 → MPC 04:47
PROVIDERS: ADMIT Hospitalist; ATTEND Internal Medicine
DX: R07.9 Chest pain, unspecified (principal); N17.9 Acute kidney failure, unspecified; R74.0 Nonspecific elevation of levels of transaminase and lactic acid dehydrogenase [LDH]; N39.0 Urinary tract infection, site not specified; I25.10 Atherosclerotic heart disease of native coronary artery without angina pectoris; J44.9 Chronic obstructive pulmonary disease, unspecified; I10 Essential (primary) hypertension; F17.210 Nicotine dependence, cigarettes, uncomplicated; Z90.710 Acquired absence of both cervix and uterus; Z88.8 Allergy status to other drugs, medicaments and biological substances; Z86.73 Personal history of transient ischemic attack (TIA), and cerebral infarction without residual deficits; E11.9 Type 2 diabetes mellitus without complications; Z79.84 Long term (current) use of oral hypoglycemic drugs
CPT/HCPCS: 36415; 71010; 71275; 80053; 80061; 81000; 82550; 82553; 82948; 83036; 83735; 84484; 85025; 85379; 87077; 87086; 87088; 87186; 93005; 94664; 96361; 96374; 96375; 99285; C8929; G0378; J1644; J1815; J2930; J3010; J7030; J7620; Q9967

== ENCOUNTER 2016-08-09 08:07 | Inpatient (IN) | payer OTHER ==
[~2016-08-09] VITALS: Ht 160 cm; Wt 67.0 kg
[2016-08-09] VITALS (11 sets, daily range): BP systolic 95–129; BP diastolic 41–78; PULSE 68–120; RESP 14–22; O2SAT 92–98
[~2016-08-09 08:07] MED LIST changes: +ACET325T51 PO; +ALBU6.7H INH; +ALBU8.5H2 IH; -ALBU8.5H4 IH; -ANT25 PO; +ATOR40TA69 PO; -ATRINH IH; +AZU500 PO; +CALC-140 PO; -CENTRUM SILVER PO; -CITRICAL PO; +CYAN10008 PO; -DIT5 PO; +FERR-83 PO; +HYDR12.5 PO; -HYDR1TAB PO; +LISI-567 PO; +LORA10CA PO; +MAGN400T23 PO; +MECL-114 PO; +METF-777 PO; +METO50TA3 PO; +MULT-1073 PO; +NITR0.4T6 PO; +OMEG1CAP56 PO; +OMEP20CA11 PO; -OMEP20TA86 PO; +OXYB5TAB10 PO; -SMV40T PO; -SULF500T7 PO; -TYL325 PO; -VIT D PO
--- NOTE | 2016-08-09 08:10 | ED.REPORT ---
HPI-Chest Pain 40 and Over Date of Service Aug 09, 2016 ED Provider: Yolanda Sharpe MD Pt is a 71 y.o. female with a hx of NSTEMI, DM, COPD, and CAD who presents to the ED via EMS c/o chest pain, exacerbated by movement and deep inspiration, described as "squeezing" onset 2 days ago. Pt reports associated mild SOB, nausea, non-productive cough, chills, and fever (subjective). She denies vomiting. She claims that she did not take her NTG as she thought the pain was due to GERD and was too nauseated to take her morning medications. EMS reports administering 324 ASA, 2 NTG, and 5mg IV Morphine en-route. Upon arrival pt states her pain is rated at a 3. Pt was recently admitted to the hospital (08/04-08/05/16) for left-sided chest pain, she had a negative echocardiogram and CTA and her sx were resolved upon discharge. She states her current sx are similar to her recent ED visit. The pt was also hospitalized at [place] on 2016 with a diagnosis of NSTEMI, NICM, and non-obstructive CAD (per cath). Nursing Notes Stated Complaint: CHEST PAIN Chief Complaint: Chest Pain Nursing Notes Reviewed: Yes Allergies: Coded Allergies: formaldehyde (Verified Allergy, Severe, Wheezing and cannot breathe, ) Scheduled Acetaminophen (Acetaminophen) 325 Mg Tablet 650 MG PO BID Albuterol HFA (Proair HFA) 8.5 Gm Hfa.aer.ad 2 PUFF IH BID Aspirin (Aspirin) 81 Mg Tablet 81 MG PO DAILY Atorvastatin Calcium (Atorvastatin Calcium) 40 Mg Tablet 40 MG PO DAILY Cholecalciferol (Vitamin D3) (Vitamin D3) 5,000 Unit Tablet 5,000 UNIT PO DAILY Cyanocobalamin (Vitamin B-12) (Vitamin B-12) 1,000 Mcg Tablet 1,500 MCG PO DAILY Loratadine (Claritin) 10 Mg Capsule 10 MG PO DAILY Magnesium Oxide (Mag-Oxide) 400 Mg Tablet 400 MG PO DAILY Metformin HCl (Metformin HCl ER) 500 Mg [id number] 500 MG PO BID Metoprolol Tartrate (Metoprolol Tartrate) 50 Mg Tablet 50 MG PO BID Multivits-Min/FA/Lycopene/Lut (Centrum Silver Tablet) 1 Each Tablet 1 TABLET PO DAILY [place]-3 Fatty Acids/Fish Oil ([place] 3 1,000 mg Softgel) 1 Each Capsule 1 CAPSULE PO DAILY Omeprazole (Omeprazole) 20 Mg Capsule.dr 20 MG PO DAILY Take 1 capsule by mouth before BREAKFAST Oxybutynin Chloride (Oxybutynin Chloride) 5 Mg Tablet 5 MG PO BID Sulfasalazine (Sulfasalazine) 500 Mg Tablet 1,000 MG PO BID Scheduled PRN Albuterol Sulfate (Proventil HFA Inhaler) 6.7 Gm Hfa.aer.ad 2 PUFF INH Q4 PRN PRN For Wheezing Meclizine (Bonine) 25 Mg Tab.chew 25 MG PO TID PRN PRN For Dizziness Nitroglycerin SL (Nitroglycerin SL) 0.4 Mg Tab.subl 0.4 MG PO PRN For Chest Pain Miscellaneous Medications Iron (Iron) 18 Mg Tablet 65 MG PO General Time Seen by MD: 08:09 Chief Complaint Chest pain Hx Obtained From: Patient, EMS Arrived By: Ambulance Sudden in Onset?: Yes Onset Occurred: 2 days ago Symptom Duration: Since onset Location: : Chest left: Chest right Quality: Painful Severity: Current: Pain level 3 out of 10 Severity: Maximum: Severe Recent Healthcare: Recent hospitalization Similar Sx Previous: Yes Past Medical History Past Medical History Hx of NSTEMI and nonobstructive CAD per cath 06/2016 Reports: COPD, Coronary artery disease, Diabetes mellitus, Hypertension Past Surgical History Reports: Hysterectomy Smoking History Former Smoker Social History Alcohol Use: Denies alcohol use Drug Use: Denies drug use Occupation son and his and their child live with her. Would like them to get their own place but she feels the child gets better care with her at her house Review of Systems Constitutional: Reports: Chills, Fever (Subjective) Respiratory: Reports: Non-productive cough, Pleuritic pain, Shortness of breath Cardiovascular: Reports: Chest pain GI: Reports: Nausea, Denies: Vomiting Complete sys rev & neg: except as marked. Physical Exam Initial Vital Signs Vital Signs (First) Date Time Temp Pulse Resp B/P Pulse Ox O2 Delivery O2 Flow Rate FiO2 08/09/16 08:09 120 15 116/53 98 Nasal Cannula 2 Initial VS: Reviewed Head / Eyes: Atraumatic, Normocephalic Extremities: Vascular intact, Neuro intact Skin: Warm, Dry, No cyanosis Neurologic: Alert, Oriented, Nonfocal Psychiatric: Mood/affect normal, Behavior normal, Normal thought content General/Constitutional: Awake, Alert, No acute distress, Well appearing, Well developed, Well hydrated, Well nourished, Not toxic appearing Respiratory / Chest: Atraumatic, Breath sounds NL, Breath sounds = bilat, No respiratory distress, No chest tenderness Cardiovascular: Regular rhythm Heart Rate / Rhythm: Positive: Tachycardia No lower extremity edema Abdomen: Atraumatic, Soft, Non-tender, BS normoactive, No distention Interpretation & Diagnostics Lab Results Interpretation Result Diagram: 08/09/16 0810 08/09/16 0810 Test 08/09/16 08:10 08/09/16 09:18 08/09/16 09:25 08/09/16 09:40 White Blood Count 18.3th/mm3 (3.8-10.1) Red Blood Count 2.68mil/mm3 (3.90-5.20) Hemoglobin 9.0g/dL (12.0-15.6) Hematocrit 27.6% (35.0-46.0) Mean Corpuscular Volume 103.0fL (81-100) Mean Corpuscular Hemoglobin 33.6pg (27.0-35.0) Mean Corpuscular Hemoglobin Concent 32.6% (32.0-37.0) Red Cell Distribution Width 15.2% (12.3-15.4) Platelet Count 428bil/L (150-400) Neutrophils (%) (Auto) 77.2% (40-74) Lymphocytes (%) (Auto) 12.2% (14-46) Monocytes (%) (Auto) 9.6% (4-12) Eosinophils (%) (Auto) 0.4% (0-5) Basophils (%) (Auto) 0.3% (0-3) Sodium Level 135mEq/L (134-144) Potassium Level 5.0mEq/L (3.5-5.2) Chloride Level 98mEq/L (97-108) Carbon Dioxide Level 22mmol/L (18-29) Blood Urea Nitrogen 15mg/dL (8-27) Creatinine 0.96mg/dL (0.57-1.00) Estimat Glomerular Filtration Rate 82mL/min (>59) Glucose Level 151mg/dL (60-99) Calcium Level 9.2mg/dL (8.5-10.1) Magnesium Level 1.6mg/dL (1.6-2.6) Total Bilirubin 0.5mg/dL (0.0-1.2) Aspartate Amino Transf (AST/SGOT) 26U/L (0-50) Alanine Aminotransferase (ALT/SGPT) 46U/L (0-32) Alkaline Phosphatase 120U/L (25-165) Troponin T 0.010ug/L (0.0-0.011) Total Protein 7.2g/dL (6.4-8.4) Albumin 3.5g/dL (3.4-5.0) Lactic Acid Level 1.3mmol/L (0.4-2.0) Hold Blue Top Tube Received (Received) Urine Color Yellow (YELLOW) Urine Appearance Cloudy (CLEAR,HAZY) Urine pH 5.5 (5.0-8.0) Urine Specific [place] 1.019 (1.003-1.035) Urine Protein Negativemg/dL (NEG,TRACE) Urine Glucose (UA) Negativemg/dL (NEGATIVE) Urine Ketones Negativemg/dL (NEGATIVE) Urine Occult Blood Small (NEGATIVE) Urine Nitrite Negative (NEGATIVE) Urine Bilirubin Negative (NEGATIVE) Urine Urobilinogen Normalmg/dL (NORMAL) Urine Leukocyte Esterase Moderate (NEGATIVE) Urine RBC 0-2/hpf (0-2) Urine WBC >50/hpf (0-5) Urine Epithelial Cells Occasional/hpf (NONE-MOD) Urine Crystals None seen (NONE SEEN) Urine Bacteria Few/hpf (NONE-FEW) Urine Hyaline Casts None/lpf (NONE) Urine Granular Casts None seen (NONE SEEN) Urine Waxy Casts None seen (NONE SEEN) Urine Red Blood Cell Casts None seen (NONE SEEN) Urine White Blood Cell Casts None seen (NONE SEEN) Urine Mucus None seen (None Seen) Urine Trichomonas None seen (NONE SEEN) Urine Yeast None (NONE SEEN) Urinalysis Comment None Urine Culture Reflexed Indicated ECG Interpretation ECG Interpretation: No ischemia Atrial premature complex Interpreted by: ED physician Normal ECG Interpretation: Normal sinus rhythm Rhythm / Conduction: Tachycardia (116) X-Ray Chest Interpretation Chest Xray Interpretation: IMPRESSION: Left basilar pneumonia with small parapneumonic effusion. Dictated by: Abril Valentine M.D. on 08/09/2016 at 8:59 Approved by: Abril Valentine M.D. on 08/09/2016 at 8:59 Re-Eval/Medical Decision Med Decision/Clinical Course 71-year-old presents with increasing chest pain. Discharged home less than 48 hours ago with cardiac workup that suggested non-cardiac chest pain. She notes that she is getting worse with increasing shortness of breath the pain is worse with deep breathing and worse when she lays back. Initial white count is significantly elevated which is a change from her previous admission. She is moderately hypoxic and returns to the upper 90s on 2 L of room air. Workup reveals left-sided lower lobe pneumonia lactic acid is normal she is initially hypotensive and tachycardic. BP responds nicely to fluids. Sat 2 L at rest 98%. Walking on RA they drop to 75%, with deep breathing can get up to high 80's. At this point, normotensive, HR 90s. significantly hypoxic with ambulation (not chronically hypoxic) . will need admission until hypoxia improves Source of Hx: Old records Time of Eval: 09:07 Re-Evaluation/Progress Note: Discussed with pt imaging results and possible need for admit. Pt understands and agrees with plan. Time of Eval: 10:38 Patient Status: Pain improved Re-Evaluation/Progress Note: Pt rechecked. Pt states her pain has improved. Discussed plan for road test to determine if pt should be discharged or admitted. Pt understands and agrees with plan. Consultation : Referral / Consult Name: Vern Nguyen MD Consulted With: Hospitalist Call Returned at: 11:44 Educational Institution President: Will see patient, Agrees with eval, Agrees with plan, Accepts admit Note: Discussed pt condition. Accepts admit. Discussed whether pneumonia was hospital or community aquired. Due to pt having pain with previous visit and no cardiac etiology she was likely developing it then and it is most likely community aquired. likely community aquired Counseled Regarding: Diagnosis, Lab results, Need for follow-up, When/why to return to ED Discharge & Departure Primary Impression: Pneumonia Pneumonia type: due to unspecified organism Laterality: left Lung location : lower lobe of lung Qualified Code: J18.9 - Pneumonia, unspecified organism Additional Impression: Hypoxia Disposition: ADMITTED TO HOSPITAL Discharge Condition All VS Reviewed: Yes Condition: Improved [facility] Scribe Attestation Portions of this note were transcribed by Monica Plasencia. I, Dr. Sharpe personally performed the history, physical exam and medical decision-making; I reviewed and confirmed the accuracy of the information in the transcribed note. Signed by: Anand Beavers, 08/09/16 and 1150. copies to: [facility] Yolanda Sharpe MD Aug 09, 2016 08:10 MONICA PLASENCIA Aug 09, 2016 08:39 MONICA PLASENCIA Aug 09, 2016 08:39
[2016-08-09 08:53] LABS: BASOPHILS % (AUTO) 0.3 % (0-3); EOSINOPHILS % (AUTO) 0.4 % (0-5); MONOCYTES % (AUTO) 9.6 % (4-12); Mean Corpuscular Hemoglobin 33.6 pg (27.0-35.0); NEUTROPHILS % (AUTO) 77.2 % (40-74); Platelet Count 428 bil/L (150-400)
--- NOTE | 2016-08-09 09:01 | DRSVH ---
PROCEDURE: X-RAY CHEST ONE VIEW, PORTABLE ([id number]) INDICATIONS: CP TECHNIQUE: One view of the chest was acquired. COMPARISON: [facility], CT, CT ANGIO CHEST PE, 08/04/2016, 3:19. [facility], CR, XR CHEST 1VW (PORTABLE), 08/04/2016, 1:37. FINDINGS: Surgical changes and devices: None. Lungs and pleura: No pneumothorax. Small left pleural effusion. Moderate left basilar airspace opaci ty. Mediastinum: Mediastinal contours appear normal. Heart size is normal. Bones and chest wall: No suspicious bony lesions. Overlying soft tissues appear unremarkable. IMPRESSION: Left basilar pneumonia with small parapneumonic effusion. Dictated by: Abril Valentine M.D. on 08/09/2016 at 8:59 Approved by: Abril Valentine M.D. on 08/09/2016 at 8:59
[2016-08-09] MEDS ORDERED: 0.9% Sodium Chloride 1,000 ML IV ONE (09:03)
[2016-08-09] MEDS ORDERED: levoFLOXacin Inj 750 MG in IV Premix 1 EACH IV ONE (09:05)
[2016-08-09] MEDS ORDERED: Vancomycin Dose per Pharmacist XX ONE (09:05)
[2016-08-09] MEDS ORDERED: Piperacillin-Tazo 3.375 Gm Inj 3.375 GM in Dextrose 5% Minibag Plus 50 ML IV ONE (09:05)
[2016-08-09] MEDS ORDERED: Vancomycin Inj 1,250 MG in 0.9% Sodium Chloride 250 ML IV ONE (09:15)
[2016-08-09 09:35] LABS: Magnesium 1.6 mg/dL (1.6-2.6); TROPONIN T 0.01 ug/L (0.0-0.011)
[2016-08-09 10:33] LABS: APPEARANCE,URINE CLOUDY (CLEAR,HAZY); COLOR,URINE YELLOW (YELLOW); OCCULT BLOOD,URINE SMALL (NEGATIVE); PH,URINE 5.5 (5.0-8.0); UROBILINOGEN,URINE NORMAL (NORMAL)
[2016-08-09] MEDS ORDERED: ASPI-973 PO (11:49)
[2016-08-09] MEDS ORDERED: Alum-Mag Hydrox-Simeth 30 mL Suspension PO PRN (11:50)
[2016-08-09] MEDS ORDERED: Polyethylene Glycol (PEG) 17 Gm Powder PO PRN (11:50)
[2016-08-09] MEDS ORDERED: CHOL500011 PO (11:52)
[2016-08-09] MEDS ORDERED: IRON18TA PO (11:55)
[2016-08-09] MEDS ORDERED: Magnesium Sulf 4 Gm/100 mL H2O 4 GM in IV Premix 1 EACH IV ONE (12:25)
--- NOTE | 2016-08-09 13:11 | NUR ---
Admit Patient arrived to room 238-1 via wheelchair from ED at 1235. Pt ambulated to bed, steady on feet. IV SL. Denies pain. Patient on RA, Sp02 96%, denies SOB. Admit and med rec completed by admit nurse.
[2016-08-09] MEDS ORDERED: 0.9% NaCl + KCl 20 mEq/L 1,000 ML IV SCH (14:50)
[2016-08-09] MEDS ORDERED: Albuterol 2.5 mg/3 mL Inhalation Solution NEB PRN (16:00)
[2016-08-09] MEDS ORDERED: 0.9% Sodium Chloride 1,000 ML IV SCH (16:10)
[2016-08-09] MEDS: Sodium Chloride LOK Flush 10 mL Syringe IVFLUSH SCH ×2 (16:30→21:29)
--- NOTE | 2016-08-09 18:08 | NUR ---
Tachycardia Per planetarium technician patient tele sinus tach since admit 100's to 1teens. Patient has gone up to 120's around 1710 and then to 130's briefly during activity, and now back down to 1teens -120's. Hospitalist made aware. No new orders, and advised to continue to monitor.
--- NOTE | 2016-08-09 19:16 | PCM.HPMED ---
Subjective Date of Service Aug 09, 2016 Primary Provider: Admitting Physician: Vern Nguyen MD [facility] Attending Physician: Vern Nguyen MD Chief Complaint: Severe pain in upper chest and shortness of breath. History of Present Illness: The patient is a 71 year old female with history of DM, COPD, CAD ( nonobstructive per recent cath on 06/2016) who was recently hospitalized at [facility] on 06/2016 with diagnosis of NSTEMI, NICM, and non-obstructive CAD who was admitted to [facility] with complaint of acute left sided chest pain on 08/04/2016.. She notes that the left sided chest pain began 1 day prior to admission after eating a piece of apple pie. She took three SL NTG before the pain subsided. However, she had reoccurrence of the pain again late night prior to admission which lasted until the morning of admission.. She notes that the pain is worse with deep breathing and somewhat sharp in nature. She otherwise denies any other associated symptoms such as nausea, vomiting, diaphoresis, SOB, lightheadedness, or palpitations. The pain is non-radiating. The patient was brought into the hospitalist service under observation and her troponins were negative so acute coronary syndrome was ruled out. A CT angiogram was performed and ruled out a pulmonary embolism. The patient's pain eventually subsided and the patient was discharged home on . Then at noon on 08/08/2016 patient developed chest pain again which was exacerbated by movement and deep inspiration. The pain was described as a "squeezing" sensation. The discomfort lasted until 5 AM this morning and patient started getting short of breath. Patient then decided to come to the emergency room. She called 911 and EMS administered 324 mg of aspirin, 2 nitroglycerin and 5 mg IV morphine and route to the emergency room. Upon arrival the patient stated that her pain is rated as a 3 and a scale 1-10. She stated that her current symptoms are similar to when she had during her recent hospitalization. Patient was evaluated in the emergency room by Dr. Yolanda Hopkins who ordered a chest x-ray which showed a left basilar pneumonia with small parapneumonic effusion. EKG showed no ischemia and atrial premature complexes almost sinus rhythm with some tachycardia rate of 116. The patient's white blood cell count was found to be markedly elevated. The patient was admitted to the hospitalist service for further evaluation and treatment. Review of Systems: General: Patient has no fever chills or sweats. She has no significant cough. She does feel warm and apparently has not taken her temperature at home. HEENT: Patient has no headache, patient has no diplopia, patient has no changes in vision. The patient does wear corrective lenses. Patient has no problems with her ears or nose. She does have a mild sore throat. Patient has had all of her teeth removed. She does not wear her dentures as they do not fit right and actually hurt her more when she is eating and she does not wear them. Patient has no history of thrush. Neck: Patient has no stiffness in the neck. Patient has no lymphadenopathy. Patient has no other problems with their neck. Pulmonary: The patient has a history of COPD. The patient has a history of bronchial pneumonia once in the past. Patient has shortness of breath. However , she has no significant cough, no expectoration of sputum. Patient has pleuritic chest pain associated with deep breathing and coughing. Patient has chest pain in her upper chest in the subclavicular area on both sides of the chest. Cardiovascular: Patient has chest pain in the bilateral subclavicular area. The patient is very similar to the pain that she came in with her last admission between 08/04/2016 to 08/05/2016. Patient has no history of heart murmur. Patient has no palpitations. Patient has a history of myocardial infarction in June 2016 and was treated at a hospital in [facility]. Patient has no evidence of occlusive coronary artery disease on cardiac catheterization in June 2016. Gastrointestinal: Patient has no history of hepatitis A, B or C. Patient has no history of peptic ulcer disease. Patient has no history of gastroesophageal reflux disease. Patient has no history of nausea, vomiting, or diarrhea. Patient has no history of hematemesis, hematochezia, or melena. Patient has no history of colitis. Renal: Patient has no history of kidney disease. No history of kidney stones. Genitourinary: Patient has no history of dysuria, frequency, or incontinence. Patient has no previous history of genitourinary problems. Musculoskeletal: Patient has no history of muscular skeletal problems. Neurologic: Patient has no history of stroke, no history of seizure, no history of TIA. Psychiatric: Patient has been under treatment as well as stressor last 2 years. The patient states that she has been living with her son and granddaughter and [id number]-miy and also her son charlotte. The charlotte apparently is a convicted sex offender. The court system stated that her son charlotte could live in the home only if the patient's 10-year-old granddaughter was taken out of the home. Therefore the patient lived in a hotel room for the last 2 years with her son charlotte in order to "keep her family together". The plan was to stay in the home toe room until the patient's son charlotte turned 18 which would occur on August 25 of this year. However, the patient suffered a non-ST elevated myocardial infarction likely due to the stress surrounding this whole living arrangement. That is when the patient's son Mark stepped in and help her parole officers came up with other living arrangements for his charlotte. The remainder of the entire review of systems was reviewed with patient and is as mentioned above otherwise negative. Allergies Coded Allergies: formaldehyde (Verified Allergy, Severe, Wheezing and cannot breathe, ) Home Medications Scheduled Acetaminophen (Acetaminophen) 325 Mg Tablet 650 MG PO BID Albuterol HFA (Proair HFA) 8.5 Gm Hfa.aer.ad 2 PUFF IH BID Aspirin (Aspirin) 81 Mg Tablet 81 MG PO DAILY Atorvastatin Calcium (Atorvastatin Calcium) 40 Mg Tablet 40 MG PO DAILY Cholecalciferol (Vitamin D3) (Vitamin D3) 5,000 Unit Tablet 5,000 UNIT PO DAILY Cyanocobalamin (Vitamin B-12) (Vitamin B-12) 1,000 Mcg Tablet 1,500 MCG PO DAILY Loratadine (Claritin) 10 Mg Capsule 10 MG PO DAILY Magnesium Oxide (Mag-Oxide) 400 Mg Tablet 400 MG PO DAILY Metformin HCl (Metformin HCl ER) 500 Mg Ilwimsm40d 500 MG PO BID Metoprolol Tartrate (Metoprolol Tartrate) 50 Mg Tablet 50 MG PO BID Multivits-Min/FA/Lycopene/Lut (Centrum Silver Tablet) 1 Each Tablet 1 TABLET PO DAILY [place]-3 Fatty Acids/Fish Oil ([place] 3 1,000 mg Softgel) 1 Each Capsule 1 CAPSULE PO DAILY Omeprazole (Omeprazole) 20 Mg Capsule.dr 20 MG PO DAILY Take 1 capsule by mouth before BREAKFAST Oxybutynin Chloride (Oxybutynin Chloride) 5 Mg Tablet 5 MG PO BID Sulfasalazine (Sulfasalazine) 500 Mg Tablet 1,000 MG PO BID Scheduled PRN Albuterol Sulfate (Proventil HFA Inhaler) 6.7 Gm Hfa.aer.ad 2 PUFF INH Q4 PRN PRN For Wheezing Meclizine (Bonine) 25 Mg Tab.chew 25 MG PO TID PRN PRN For Dizziness Nitroglycerin SL (Nitroglycerin SL) 0.4 Mg Tab.subl 0.4 MG PO PRN For Chest Pain PMH Patient has a history of COPD Patient has a history of diabetes mellitus is not insulin-dependent Patient has a history of hypertension Patient had a non-ST elevated myocardial infarction and underwent a coronary artery catheterization on 06/29/2016 and was found to have no significant occlusion. She did not require any stenting. The myocardial infarction was felt to be stress related. Patient had a recent cardiac workup here at [facility] during an observation admission from 08/04/2016 to which was negative. Surgical History Patient has had a total abdominal hysterectomy and bilateral salpingo- oophorectomy in the past The patient has had all of her teeth removed The patient denies any other surgeries. Family History The patient's mother at the age of 58 from having poor cardiac and pulmonary function after motor vehicle accident. The patient's father at the age of 53 or 54 from lung cancer. The patient has 1 sister who she knows nothing about her medical history. Patient had one brother who of unknown causes other than he was an alcoholic. Social History Hx Alcohol Use: Yes (The patient drank for a few years well in the [employer] but then quit.) Hx Substance Use: No Hx Tobacco Use: Yes (The patient smoked 3-4 packs of cig per day until Jun 282016. She quit on that day when she was told that she had a "heart attack") Smoking Status: Former Smoker Living Arrangement: with Family Additional Information The patient was born in [place], [place]. Her father was an alcoholic and he moved the family to various places in the country. Patient ended up getting a GED in [place]. As patient did not finish high school. Patient began smoking at the age of 8 and she got up to 1 pack per day for approximately 36 years and quit 06/28/2016. Patient was to her first for 2 years and had one son Mark. Patient was to her second for 13 years and he . Patient lived in [place] and then in [place] and she works as an provider relations manager. 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 Patient now lives in [place] with her son Len and wujxhvai-mk-ogu and granddaughter. Wednesday. Son is now out of the house. And he turns 18 this month. The patient has been under tremendous stress lately due to her son's rezaon being a convicted sex offender. So in court order to keep the family together" the patient lived with her son's charlotte in a hotel room for almost 2 years so that her son and her puaceboh-he-pvv and granddaughter could continue living in her home. After she had a heart attack which sounds stress-induced, she moved back into her own home and her son found other arrangements for his stepson with the help of his parole officers. Exam Vital Signs Vital Sign - Last Date Time Temp Pulse Resp B/P Pulse Ox O2 Delivery O2 Flow Rate FiO2 08/09/16 17:43 37.2 111 14 128/76 92 Room Air 08/09/16 12:23 2 Exam General: Patient is in no apparent distress. HEENT: Head is atraumatic and normocephalic. Eyes: Pupils are equally round and reactive to light and accommodation. Extraocular muscles are intact. Sclera are white, anicteric. Subconjunctival mucosa is pink. Ears and nose are unremarkable. Oropharynx: There is no mucosal lesions, there is no thrush, there is no pharyngitis. Patient is edentulous. Neck: Is supple, there are no nodes, or masses or tenderness. Chest: Is significant for left lower lobe rales and diminished breath sounds. Heart: Rate, rhythm is regular. There is no murmur, rub or gallop. Heart tones are distant. Abdomen: Good bowel sounds are present. Abdomen is obese, soft, nontender, no organomegaly or masses were appreciated. Extremities: Are symmetrical and well perfused. There is no edema, there is no cellulitis, no rash. Neurologic: There are no focal neurological deficits. Cranial nerves II through XII are intact. There are no sensory or motor deficits. Psychiatric: Patients mood is calm and shows no sign of agitation. Genital: Deferred Rectal: Deferred Lab and Diagnostics Result Diagram: 08/09/1680908/09/16809 Microbiology Blood and urine cultures are pending Name: GURPREETNEHA Priscila Age/Sex: 71/F Attend Dr: Dewayne Otero MD Acct: [id number] Unit: [id number] Status: DIS Lizzie [place] [facility] [place] 3007-1 Re08/04/16 Disch: 08/05/16 Specimen: [id number] Collected: 08/04/16 Status: COMP Req#: [id number] Received: 08/04/16 Source: RANDOM Sp Desc : Subm Dr: Wolfgang Mnae Ordered: URINE CULT Procedure Result Verified Site Microbiology [facility] CULT URINE Final 08/06/16-49 Organism 1 ENTEROCOC FAECALIS - (GROUP D) U COLONY COUNT/QUANTITY >100,000 CFU/ml For Enterococcus species, cephalosporins, aminoglycosides (except high level resistance screening), clindamycin, and trimethoprim-sulfamethoxazole are not effective clinically and should not be used. If penicllin is susceptible, ampicllin and amoxicillin can be considered as valid treatment options for urinary tract infections. (M100S 26th ed. CLSI 2016) 1. ENTEROCOC FAECALIS - (GROUP D) M.I.C Interp --------- ------ * CIPROFLOXACIN <=0.5 S * LEVOFLOXACIN 1 S * NITROFURANTOIN <=16 S * PENICILLIN-G 4 S * TETRACYCLINE <=1 S * VANCOMYCIN 1 S X-Rays, CTs and MRIs PROCEDURE: X-RAY CHEST ONE VIEW, PORTABLE ([id number]) INDICATIONS: CP TECHNIQUE: One view of the chest was acquired. COMPARISON: [facility], CT, CT ANGIO CHEST PE, 08/04/2016, 3:19. [facility], CR, XR CHEST 1VW (PORTABLE), 08/04/2016, 1:37. FINDINGS: Surgical changes and devices: None. Lungs and pleura: No pneumothorax. Small left pleural effusion. Moderate left basilar airspace opacity. Mediastinum: Mediastinal contours appear normal. Heart size is normal. Bones and chest wall: No suspicious bony lesions. Overlying soft tissues appear unremarkable. IMPRESSION: Left basilar pneumonia with small parapneumonic effusion. Dictated by: Abril Valentine M.D. on 08/09/2016 at 8:59 Approved by: Abril Valentine M.D. on 08/09/2016 at 8:59 Cardiac Echo Impressions Echocardiogram Report Name: NEHA VÁZQUEZ PStudy Date: 08/04/2016 Height: 63 in Hospital Exam Location: [facility] Weight: 143 lb Gender: Female BSA: 1.7 m2 : 1945 Age: 71 yrs BP: 144/46 mmHg Reason For Study: Chest pain Ordering Physician: Performed By: Letitia Trinidad Referring Physician: [facility] Interpretation Summary Normal left ventricle size with ejection fraction 60-65%. Grade I diastolic dysfunction. Moderate aortic valve sclerosis. No valvular regurgitation. Assessment & Plan The patient is a 71 year old female with history of DM, COPD, CAD ( nonobstructive per recent cath on 06/2016) who was recently hospitalized at [facility] on 06/2016 with diagnosis of NSTEMI, NICM, and non-obstructive CAD who was admitted to [facility] with complaint of acute left sided chest pain on 08/04/2016.. She notes that the left sided chest pain began 1 day prior to admission after eating a piece of apple pie. She took three SL NTG before the pain subsided. However, she had reoccurrence of the pain again late night prior to admission which lasted until the morning of admission.. She notes that the pain is worse with deep breathing and somewhat sharp in nature. She otherwise denies any other associated symptoms such as nausea, vomiting, diaphoresis, SOB, lightheadedness, or palpitations. The pain is non-radiating. The patient was brought into the hospitalist service under observation and her troponins were negative so acute coronary syndrome was ruled out. A CT angiogram was performed and ruled out a pulmonary embolism. The patient's pain eventually subsided and the patient was discharged home on . Then at noon on 08/08/2016 patient developed chest pain again which was exacerbated by movement and deep inspiration. The pain was described as a "squeezing" sensation. The discomfort lasted until 5 AM this morning and patient started getting short of breath. Patient then decided to come to the emergency room. She called 911 and EMS administered 324 mg of aspirin, 2 nitroglycerin and 5 mg IV morphine and route to the emergency room. Upon arrival the patient stated that her pain is rated as a 3 and a scale 1-10. She stated that her current symptoms are similar to when she had during her recent hospitalization. Patient was evaluated in the emergency room by Dr. Yolanda Hopkins who ordered a chest x-ray which showed a left basilar pneumonia with small parapneumonic effusion. EKG showed no ischemia and atrial premature complexes almost sinus rhythm with some tachycardia rate of 116. The patient's white blood cell count was found to be markedly elevated. The patient was admitted to the hospitalist service for further evaluation and treatment. # Acute chest pain and shortness of breath. present on admission. - Patient now has what appears to be pneumonia of the left lower lobe with a parapneumonic effusion. This diagnosis is supported by leukocytosis on admission CBC. Differential diagnosis includes: A) Left lower lobe pneumonia with peripneumonic effusion and leukocytosis B) Sravani syndrome after myocardial infarction - At this point would be prudent to treat the patient for pneumonia with parapneumonic effusion as this can be life-threatening. Patient was given healthcare associated pneumonia antibiotics in the emergency room per protocol. We will streamline the antibiotics to Levaquin 500 mg IV every 24 hours. - We will repeat chest x-ray in a.m. - Acute respiratory failure with hypoxia secondary to above - A pulmonary embolism was ruled out with negative CTA chest on 08/04/2016. - Patient had an acute coronary syndrome ruled out on 08/04/2016 and 08/05/2016 by cycling troponins. We will repeat cycling troponins - Echo unremarkable on 07/27/2016 with intact EF. This is despite a report of reduced EF of 30% per ventriculography from recent hospitalization on 06/2016 at [facility]. - She had negative cardiac cath between 06/30/2016 and 07/05/2016. - Without seeing the records from [facility] I would suspect given the above history and social history the patient had a diagnosis of type "Takotsubo Cardiomyopathy". # Recent report of non-ischemic cardiomyopathy, present on admission - This appears to have resolved per echocardiogram during this hospital - Again I suspect the patient had "Takotsubo Cardiomyopathy". # Acute kidney injury, on recent admission appears to be at baseline. - likely pre-renal from recent diuretic medications - Resolved with gentle IVF - further f/u as outpatient # Acute transaminitis of unclear etiology. 9 recent admission. - pt insists on being discharged today and wishes to f/u w/ PCP as outpatient - Need to followup with primary care provider for further workup or to ensure resolution. # Asymptomatic urinary tract infection. present on previous admission secondary to group D strep (with significant pyuria on urinalysis with greater than 50 white blood cells and greater than 100,000 colonies per milliliter of group B strep) - We will start IV Unasyn 3 g IV every 6 hours - We will continue Levaquin IV as well for pneumonia for now. - Consider infectious disease consultation with Dr. Don Griffin to this complicated situation # History of diabetes mellitus - HgA1C 5.2 # History of COPD. stable - We will continue with home inhalers as needed # History of non-obstructive CAD. presumed stable. Again I suspect this is due to "Takotsubo Cardiomyopathy" - We will continue with home dose ASA, Statin and metoprolol Disposition: Patient will be here more than 2 mandates for the evaluation and treatment of the above problem, therefore the patient was admitted as an inpatient. Pain Evaluation: Adequate Pain Control GI Prophylaxis: Proton Pump Inhibitor VTE Prophylaxis: Sub-Q Enoxaparin Resuscitation Status: CPR: Attempt Resuscitation Vern Nguyen MD Aug 09, 2016 19:16
[2016-08-09] MEDS: Albuterol 2.5 mg/3 mL Inhalation Solution NEB SCH (20:11)
[2016-08-09] MEDS ORDERED: metFORMIN ER 500 mg ER24 Tablet PO SCH (20:30)
[2016-08-09] MEDS: Sulfasalzine 500 mg Tablet PO SCH (20:33)
[2016-08-09] MEDS ORDERED: Ampicillin-Sulbactam Inj 3,000 MG in 0.9% Sodium Chloride 100 ML IV SCH (21:00)
[2016-08-09] MEDS: Ampicillin-Sulbactam Inj 3,000 MG in 0.9% Sodium Chloride 100 ML IV SCH (22:30)
[2016-08-10] VITALS (9 sets, daily range): BP systolic 98–160; BP diastolic 55–71; PULSE 65–114; RESP 16–20; O2SAT 91–97
[2016-08-10] MEDS: Ondansetron 2 mg/mL 2 mL Inj IVPUSH PRN ×2 (02:17→10:50)
--- NOTE | 2016-08-10 02:23 | NUR ---
Nausea awoke nauseated "felt dizzy and thought i was gonna throw up", did not in fact have emesis , medicated Debbie Addendum: 08/10/16 at 0617 by MARIE NAVA RN nausea resolved thought did experience a little dizzy upon arising to go to [facility] encouraged to call before getting oob
[2016-08-10] MEDS: Ampicillin-Sulbactam Inj 3,000 MG in 0.9% Sodium Chloride 100 ML IV SCH ×2 (04:00→10:22)
[2016-08-10] MEDS ORDERED: Pantoprazole 40 mg ER24 Tablet PO SCH (06:30)
[2016-08-10 06:36] LABS: BASOPHILS % (AUTO) 0.2 % (0-3); EOSINOPHILS % (AUTO) 0.6 % (0-5); MONOCYTES % (AUTO) 10.4 % (4-12); Mean Corpuscular Hemoglobin 33.1 pg (27.0-35.0); Mean Corpuscular Volume 103.3 fL (81-100); NEUTROPHILS % (AUTO) 81.1 % (40-74); Platelet Count 382 bil/L (150-400)
[2016-08-10 06:50] LABS: TROPONIN T 0.01 ug/L (0.0-0.011)
[2016-08-10 07:01] LABS: Magnesium 2.4 mg/dL (1.6-2.6)
[2016-08-10] MEDS: Sodium Chloride LOK Flush 10 mL Syringe IVFLUSH SCH ×2 (07:44→15:33)
[2016-08-10] MEDS: Albuterol 2.5 mg/3 mL Inhalation Solution NEB SCH ×3 (08:06→20:03)
--- NOTE | 2016-08-10 08:09 | NUR ---
attempted to assess patient and give her a nebulizer treatment. she was willing to take it but before we could get started she was taken off unit to get x-ray. no respiratory distress noted at this time and she states her breathing is doing "pretty good today".
[2016-08-10] MEDS ORDERED: levoFLOXacin Inj 500 MG in IV Premix 1 EACH IV SCH (08:30)
[2016-08-10] MEDS ORDERED: [UNRECOGNIZED DRUG - OTHER] PO SCH (08:30)
[2016-08-10] MEDS: Omega-3 Fatty Acids 1,000 mg Capsule PO SCH (08:45)
[2016-08-10] MEDS: Sulfasalzine 500 mg Tablet PO SCH ×2 (08:48→21:02)
--- NOTE | 2016-08-10 09:08 | DRSVH ---
PROCEDURE: X-RAY CHEST, TWO VIEWS ([id number]) INDICATIONS: Follow up for Pneumonia TECHNIQUE: 2 views of the chest were acquired. COMPARISON: [facility], CR, XR CHEST 1VW (PORTABLE), 08/09/2016, 8:32. FINDINGS: Surgical changes and devices: None. Lungs and pleura: There is a persistent opacification within the left base, with minimal improvement. There is minimal blunting of the right costophrenic angle unchanged. Mediastinum: Mediastinal contours are normal. Heart size is normal. Bones and chest wall: No suspicious bony abnormalities. Soft tissues appear unremarkable. 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 There is minimal interval improvement. Recommend continued interval followup document re solution and exclude presence of underlying mass lesion. Dictated by: Anusha Lambert M.D. on 08/10/2016 at 9:06 Approved by: Anusha Lambert M.D. on 08/10/2016 at 9:07
--- NOTE | 2016-08-10 10:07 | PCM.PNMED ---
Subjective Date of Service Aug 10, 2016 Subjective pt had nausea overnight, controlled with zofran. denied pain, SOB, sputum. feels much better today remained afebrile able to go to bathroom w/o problems Exam Vital Signs Vital Sign - Last Date Time Temp Pulse Resp B/P Pulse Ox O2 Delivery O2 Flow Rate FiO2 08/10/16 09:11 70 20 95 Room Air 08/10/16 05:57 36.8 142/64 08/09/16 12:23 2 Intake and Output 08/09/16 08/09/16 08/10/16 Cumulative From/Thru 15:00 23:00 07:00 08/09/16 08:09 - 08/10/16 06:02 Intake Total 600 ml 390 ml 844 ml 1834 ml Output Total 400 ml 850 ml 1250 ml Balance 600 ml -10 ml -6 ml 584 ml Intake Oral 236 ml 120 ml 356 ml IV Total 600 ml 154 ml 724 ml 1478 ml Output Urine Total 400 ml 850 ml 1250 ml Exam NAD, comfortably laying down on the bed no JVD, MMM, no LAD RRR, nl s1, s2 no mrg decreased BS in left base, no c,w S,ND,NT,normoactive BS+ warm, no edema, pulses 2/2 IVs and Medications Medications Reviewed: Medications were reviewed in detail Lab and Diagnostics Result Diagram: 08/10/16 0550 08/10/16 0550 Microbiology Blood and urine cultures are pending Name: NEHA VÁZQUEZ Age/Sex: 71/F Attend Dr: Dewayne Otero MD Acct: [id number] Unit: [id number] Status: DIS Lizzie [place] [facility] [place] Re08/04/16 Disch: 08/05/16 Specimen: [id number] Collected: 08/04/16 Status: BLAIR Renee#: [id number] Received: 08/04/16 Source: RANDOM Sp Desc : Subm Dr: Wolfgang Mane Ordered: URINE CULT Procedure Result Verified Site Microbiology ARCELIA CULT URINE Final 08/06/16 Organism 1 ENTEROCOC FAECALIS - (GROUP D) U COLONY COUNT/QUANTITY >100,000 CFU/ml For Enterococcus species, cephalosporins, aminoglycosides (except high level resistance screening), clindamycin, and trimethoprim-sulfamethoxazole are not effective clinically and should not be used. If penicllin is susceptible, ampicllin and amoxicillin can be considered as valid treatment options for urinary tract infections. (M100S 26th ed. CLSI 2016) 1. ENTEROCOC FAECALIS - (GROUP D) Gauri Interp --------- ------ * CIPROFLOXACIN <=0.5 S * LEVOFLOXACIN 1 S * NITROFURANTOIN <=16 S * PENICILLIN-G 4 S * TETRACYCLINE <=1 S * VANCOMYCIN 1 S X-Rays, CTs and MRIs PROCEDURE: X-RAY CHEST ONE VIEW, PORTABLE ([id number]) INDICATIONS: CP TECHNIQUE: One view of the chest was acquired. COMPARISON: [facility], CT, CT ANGIO CHEST PE, 08/04/2016, 3:19. [facility], CR, XR CHEST 1VW (PORTABLE), 08/04/2016, 1:37. FINDINGS: Surgical changes and devices: None. Lungs and pleura: No pneumothorax. Small left pleural effusion. Moderate left basilar airspace opacity. Mediastinum: Mediastinal contours appear normal. Heart size is normal. Bones and chest wall: No suspicious bony lesions. Overlying soft tissues appear unremarkable. IMPRESSION: Left basilar pneumonia with small parapneumonic effusion. Dictated by: Abril Valentine M.D. on 08/09/2016 at 8:59 Approved by: Abril Valentine M.D. on 08/09/2016 at 8:59 Cardiac Echo Impressions Echocardiogram Report Name: NEHA VÁZQUEZ PStudy Date: 08/04/2016 Height: 63 in Hospital Exam Location: [facility] Weight: 143 lb Gender: Female BSA: 1.7 m2 : 1945 Age: 71 yrs BP: 144/46 mmHg Reason For Study: Chest pain Ordering Physician: Performed By: Letitia Trinidad Referring Phys[facility]: [facility] Interpretation Summary Normal left ventricle size with ejection fraction 60-65%. Grade I diastolic dysfunction. Moderate aortic valve sclerosis. No valvular regurgitation. Assessment & Plan The patient is a 71 year old female with history of DM, COPD, CAD ( nonobstructive per recent cath on 06/2016) who was recently hospitalized at [facility] on 06/2016 with diagnosis of NSTEMI, NICM, and non-obstructive CAD who was admitted to [facility] with complaint of acute left sided chest pain on 08/04/2016.. She notes that the left sided chest pain began 1 day prior to admission after eating a piece of apple pie. She took three SL NTG before the pain subsided. However, she had reoccurrence of the pain again late night prior to admission which lasted until the morning of admission.. She notes that the pain is worse with deep breathing and somewhat sharp in nature. She otherwise denies any other associated symptoms such as nausea, vomiting, diaphoresis, SOB, lightheadedness, or palpitations. The pain is non-radiating. The patient was brought into the hospitalist service under observation and her troponins were negative so acute coronary syndrome was ruled out. A CT angiogram was performed and ruled out a pulmonary embolism. The patient's pain eventually subsided and the patient was discharged home on . Then at noon on 08/08/2016 patient developed chest pain again which was exacerbated by movement and deep inspiration. The pain was described as a "squeezing" sensation. The discomfort lasted until 5 AM this morning and patient started getting short of breath. Patient then decided to come to the emergency room. She called 911 and EMS administered 324 mg of aspirin, 2 nitroglycerin and 5 mg IV morphine and route to the emergency room. Upon arrival the patient stated that her pain is rated as a 3 and a scale 1-10. She stated that her current symptoms are similar to when she had during her recent hospitalization. Patient was evaluated in the emergency room by Dr. Yolanda Hopkins who ordered a chest x-ray which showed a left basilar pneumonia with small parapneumonic effusion. EKG showed no ischemia and atrial premature complexes almost sinus rhythm with some tachycardia rate of 116. The patient's white blood cell count was found to be markedly elevated. The patient was admitted to the hospitalist service for further evaluation and treatment. # Acute chest pain and shortness of breath. present on admission. due to pneumonia of the left lower lobe with a parapneumonic effusion. ruled out ACS with negative EKG chg, serial trops. CXR 08/10 showed stable effusion. -clinically improved with abx, no signs of pleural irritation, increasing effusion, -received vanc/zosyn for HCAP in ED, switched to Levaquin 500 mg IV every 24 hours, continue for 14days. -will consider thoracentesis if clinically deteriorates - Acute respiratory failure with hypoxia secondary to above - A pulmonary embolism was ruled out with negative CTA chest on 08/04/2016. - Echo unremarkable on 07/27/2016 with intact EF. This is despite a report of reduced EF of 30% per ventriculography from recent hospitalization on 06/2016 at [facility]. - She had negative cardiac cath between 06/30/2016 and 07/05/2016. - Without seeing the records from [facility] I would suspect given the above history and social history the patient had a diagnosis of type "Takotsubo Cardiomyopathy". # Recent report of non-ischemic cardiomyopathy, present on admission - This appears to have resolved per echocardiogram during this hospital - Again I suspect the patient had "Takotsubo Cardiomyopathy". # Acute kidney injury, on recent admission appears to be at baseline. - likely pre-renal from recent diuretic medications - Resolved with gentle IVF - further f/u as outpatient # Acute transaminitis of unclear etiology. 9 recent admission. - pt insists on being discharged today and wishes to f/u w/ PCP as outpatient - Need to followup with primary care provider for further workup or to ensure resolution. # Asymptomatic urinary tract infection. present on previous admission secondary to group D strep (with significant pyuria on urinalysis with greater than 50 white blood cells and greater than 100,000 colonies per milliliter of group B strep) -started IV Unasyn 3 g IV every 6 hours for UTI, pt remained asymptomatic, will continue for 3days. -awaits repeat urine culture result # History of diabetes mellitus - HgA1C 5.2 # History of COPD. stable - We will continue with home inhalers as needed # History of non-obstructive CAD. presumed stable. Again I suspect this is due to "Takotsubo Cardiomyopathy" - We will continue with home dose ASA, Statin and metoprolol Disposition:home likely in 1-2days dvt ppx: LMWH diet: cardiac GI Prophylaxis: Proton Pump Inhibitor VTE Prophylaxis: Sub-Q Enoxaparin Resuscitation Status: CPR: Attempt Resuscitation Time spent 35min Misty Fields MD Aug 10, 2016 10:07
--- NOTE | 2016-08-10 11:51 | NUR ---
Social Work Note - Initial Assessment: D/A: See Initial Assessment. The Pt is a 71 y/o female that was admitted for hospital acquired pneumonia, hypoxia, Readmission Risk Score 3. The Pts PCP is listed as the [facility] and her primary insurance is [employer] with Medicare for Room and Board, no LTC benefits reported. EMR reviewed, PERRY met with the Pt to explain role and discuss discharge planning. SW telephone number written on white board. The Pt lives independently in [place] with her family in a one level home. The Pt continues to drive, does not use any DME, and has no HH/SNF history. The Pt reported that her Advanced [facility] paperwork is almost completed, copy requested when complete. ID consult and US pending. The Pt denies any needs at this time, SW to follow if needs arise. P: The Pt will likely discharge home via family or friend POV when medically stable. The Pt denies any needs at this time, SW to follow if needs arise. SUJATA Lay MSW Addendum: 08/10/16 at 1151 by ARAMIS EVANGELISTA Amended: Links added.
[2016-08-10 12:03] LABS: INR 1.03 ratio
--- NOTE | 2016-08-10 12:08 | NUR ---
Evaluation completed. Please go to "Notes" then click on "Assessments and Notes" (bottom left corner of screen). Then select appropriate discipline tab on top of screen.
--- NOTE | 2016-08-10 14:55 | DRSVH ---
PROCEDURE: US CHEST/PLEURAL SONOGRAM INDICATIONS: lt pleural effusion COMPARISON: None. FINDINGS: Limited sonographic images of the left chest demonstrate a very small fluid pocket without a safe access for sampling. IMPRESSION: Limited fluid pocket without safe access for diagnostic thoracentesis. Dictated by: Anusha Lambert M.D. on 08/10/2016 at 14:54 Approved by: Anusha Lambert M.D. on 08/10/2016 at 14:54
--- NOTE | 2016-08-10 16:12 | NUR ---
Evaluation completed. Please go to "Notes" then click on "Assessments and Notes" (bottom left corner of screen). Then select appropriate discipline tab on top of screen.
--- NOTE | 2016-08-10 16:15 | NUR ---
Spoke with Geni in patient access at [facility] and this patient is non service connected. She holds [facility] A.
--- NOTE | 2016-08-10 18:40 | NUR ---
Shift Summary Pt up independently in her room. Denies issues voiding. New PIV started on L arm after hand IV infiltrated. Appetite is good, reported nausea and was given zofran x1 with good results. Pt reports minimal SOB with exertion. Worked with PT today. Continue with plan of care.
--- NOTE | 2016-08-10 20:17 | CONS ---
[address] [address] CONSULTATION REPORT PATIENT: NEHA VÁZQUEZ : 1945 MR#: [id number] ADMIT: 08/09/2016 JOB ID: [id number] DATE OF SERVICE: 08/10/2016 REASON FOR CONSULT: Apparent left infiltrate with pleural effusion. HISTORY OF THE PRESENT ILLNESS: The patient is a 71-year-old retired [employer] with a complex medical history which includes coronary artery disease and a myocardial infarction back in June. The patient had atypical symptoms in that she had no chest pain but only shortness of breath and was treated at [facility] as an inpatient for a week. She was then discharged home but returned to this hospital for evaluation on August 04. She noted that she had left-sided chest pain which resolved with nitroglycerin and, for that reason, she had an evaluation which included a CT angiogram to rule out pulmonary embolism that showed no infiltrate. She was in the hospital for just a day or two and then was discharged in good condition. She then developed a chest pain on the shortly after her discharge home and was once again readmitted with what she reported as a fullness in the chest and shortness of breath of acute onset. This is very similar to the symptoms she had when she had a myocardial infarction in June at [place] and the symptoms that brought her to the ED on the which were of unclear etiology. A chest x-ray done upon admission on the showed what appeared to be a small left pleural effusion and left-sided pneumonia that were new obviously, as she just had a CT scan of the chest a few days before. Despite this apparent evidence of infection, the patient states that she had no fevers, chills, or sweats, very minimally productive cough, and no significant pleuritic chest pain. The patient was felt to have a likely bacterial pneumonia and was started on levo. Other studies done during her first 36 hours here in the hospital also indicated pyuria with Enterococcus in the urine and, for that reason, she was started on ampicillin. The patient tells us that after this very brief stay in the hospital she is already feeling pretty much back to her normal state of health. She currently denies any significant shortness of breath, fevers, chills, productive cough, pleuritic chest pain, diarrhea or urinary symptoms. She specifically denies urgency, frequency and dysuria. No suprapubic pain either. She does note she has been under lot of stress lately. No recent travel. The patient lives in [place] with her son, unubmjca-nl-weu and granddaughter as well as a 10-year-old dog, all of whom are said to be in good condition. PAST MEDICAL HISTORY: 1. COPD. 2. Diabetes mellitus. 3. Hypertension. 4. Coronary artery disease with [place] in June. SOCIAL HISTORY: The patient served 21 years in the [employer], but strangely, was really never moved from [place] where she spent almost her entire career. She only drank alcohol briefly when she 1st joined the and after that has been a nondrinker. She has, however, been a very heavy cigarette smoker since she was a child and reports that she quit the morning she had the heart attack in mid June of this year after 100+ pack year history. FAMILY HISTORY: Negative for tuberculosis in 1st and 2nd-degree relatives. Her father of lung cancer and a brother had problems with alcoholism. REVIEW OF SYSTEMS: Was done. No significant headache, visual complaint, sore throat, odynophagia, dysphagia, stiff neck, or cough. No pleuritic chest pain at this point, though obviously, she had shortness of breath that brought her into the hospital which resolved. She has had some nausea but no vomiting. No diarrhea. No dysuria, urgency, frequency, suprapubic pain. She has some minimal swelling on the right lower leg from time to time, but it has not been out of proportion to what it usually is. Otherwise, no specific problems with the joints. Remainder of the review of systems is negative. PHYSICAL EXAMINATION: Reveals an afebrile woman, temp 36.8, pulse 77, respiratory rate 16, blood pressure 115/58, saturating well on room air. She is pleasant, alert, oriented, in no acute distress. Head without trauma. Eyes without conjunctivitis. Nose normal. Oral cavity: No thrush or hairy leukoplakia. Neck: Reasonably supple. No adenopathy. Lungs with decreased breath sounds at the left base. This area is dull to percussion as well. There is no pleural or pericardial rub appreciated. Cardiac tones: Regular rate and rhythm without significant murmur and no rub is noted. Abdomen is soft, nontender. No organomegaly. No ascites. No suprapubic tenderness. No Holden catheter is present. Her lower extremities appear completely benign. No evidence of synovitis. No inflammation or cellulitis or edema. The extremities are well perfused with palpable pulses in both feet. Neurologically, the patient is intact and seems to have reasonable strength. No rash of any kind is noted, and the patient has only peripheral IV. LABORATORIES: Include white count originally 18,000, now 14, mild left shift is noted. Creatinine is 1.07. LFTs notable for an ALT of 27, otherwise negative. Troponins negative. Albumin 3.11. Procalcitonin was obtained yesterday at 0.08. Urinalysis had greater than 50 white cells. Urine culture is growing Enterococcus, susceptibilities are pending. Two blood cultures have been done. Chest x-rays, CT scans and other imaging was reviewed on the computer. The CT angiogram shows really no infiltrate and that was done just five or six days ago on the . The chest x-ray done yesterday showed left-sided pleural effusion with infiltrate which is clearly new. IMPRESSION: This 71-year-old woman was admitted two months ago to [facility] with myocardial infarction and on that day she quit smoking. She did well post discharge but on the came here with a sudden onset of choking and shortness of breath. A CT angiogram was normal and she did not appear to be having an acute myocardial infarction and was sent out only to return on August 09 with basically the same complaint and a chest x-ray now showing a new left-sided infiltrate with effusion. The differential diagnosis for this includes infectious causes such as typical bacterial pneumonia with associated parapneumonic effusion, viral pneumonia though it is unusual to have a significant pleural effusion, cryptococcal pneumonia, and remotely, mycobacterial disease but the course seems far too rapid. Noninfectious causes here could include an autoimmune process. These could include lupus or Sravani's-type syndrome, but the symptomatology and absence of fever do not seem consistent with that. Malignant pleural effusion or process also seem unlikely as does pulmonary embolus as we do have a CT angiogram from just the other day. Whether or not the patient has a urinary tract infection is debatable. She has no symptoms at all though she does have pyuria and a culture with Enterococcus. Enterococci are incapable of causing pneumonia so there is certainly no correlation between the two. RECOMMENDATIONS: 1. For the time being we can continue with the levofloxacin and amoxicillin that were started, with the levofloxacin directed at possible community-acquired pneumonia organisms while the amoxicillin is directed at UTI pathogens. I see no reason to continue with the Unasyn as we are treating an Enterococcus and there is no advantage over just oral amoxicillin. So, as part of our recommendations we are going to stop the Unasyn and also switch the Levaquin from IV to oral, so our new antibiotics will be amoxicillin 1 g p.o. t.i.d. and levofloxacin 500 a day orally. 2. We will need additional diagnostics and these will include urine Legionella and pneumococcal antigens, respiratory viral PCR, repeat procalcitonin and cryptococcal antigen. 3. Tapping of the pleural effusion and determining whether or not this is an exudate or transudate is of great importance, and this should be accomplished as soon as is feasible. Thank you for this consult. Will continue to follow this interesting patient with you.
--- NOTE | 2016-08-10 21:36 | NUR ---
Chest pressure pt report chest pressure on rate of 1-2/10. paged hospitalist and received order to obtain STAT ECG. MD came and looked the ECG. Nothing new to concern about at this time. will continue to monitor. Addendum: 08/11/16 at 0333 by FREDIS CUNNINGHAM RN pt c/o chest pressure increased on rate of 5/10. pt described chest pressure as "something heavy is sitting on my chest." paged hospitalist, and received order to get STAT Troponin which resulted (0.010) and to administered IVP morphine once. pt reported chest pressure relived and rate it 0/10, but still feel it little bit at times. will continue to monitor.
[2016-08-11] VITALS (12 sets, daily range): BP systolic 95–149; BP diastolic 49–73; PULSE 56–97; RESP 16–24; O2SAT 88–98
[2016-08-11] MEDS: Sodium Chloride LOK Flush 10 mL Syringe IVFLUSH SCH ×3 (01:06→17:31)
[2016-08-11] MEDS: Pantoprazole 40 mg ER24 Tablet PO SCH (06:38)
--- NOTE | 2016-08-11 06:44 | NUR ---
numbness pt reported numbness on the tips of her tongue and tips of her fingers bilaterally. no facial drooping, equal arm strength, and speech is okay. agapito izquierdo hospitalist at 0625. pt is diabetic. will continue to monitor.
[2016-08-11 07:10] LABS: BASOPHILS % (AUTO) 0.4 % (0-3); EOSINOPHILS % (AUTO) 1.8 % (0-5); MONOCYTES % (AUTO) 11.8 % (4-12); Mean Corpuscular Hemoglobin 32.9 pg (27.0-35.0); Mean Corpuscular Volume 102.3 fL (81-100); NEUTROPHILS % (AUTO) 75.3 % (40-74); Platelet Count 410 bil/L (150-400)
[2016-08-11] MEDS: Albuterol 2.5 mg/3 mL Inhalation Solution NEB SCH ×2 (07:23→22:04)
[2016-08-11] MEDS: levoFLOXacin 500 mg Tablet PO SCH (07:58)
[2016-08-11] MEDS: Omega-3 Fatty Acids 1,000 mg Capsule PO SCH (08:44)
[2016-08-11] MEDS: Sulfasalzine 500 mg Tablet PO SCH ×2 (08:53→20:52)
--- NOTE | 2016-08-11 09:28 | DRSVH ---
PROCEDURE: X-RAY CHEST ONE VIEW, PORTABLE ([id number]) INDICATIONS: pleural effusion follow up TECHNIQUE: One view of the chest was acquired. COMPARISON: 08/10/2016 FINDINGS: Surgical changes and devices: None. Lungs and pleura: Small bilateral, left greater than right, pleural effusions, no pneumothorax. Persi stent consolidation at the left lung base, right lower lobe showing interval improvement. Mediastinum: Mediastinal contours appear normal. Heart size is normal. Bones and chest wall: No suspicious bony lesions. Calcification over the right humeral head. Overlyi ng soft tissues appear unremarkable. IMPRESSION: Bibasilar pneumonia with parapneumonic effusions, left greater than right, with some impr ovement on the right. Dictated by: Brannon Fisher M.D. on 08/11/2016 at 9:25 Approved by: Brannon Fisher M.D. on 08/11/2016 at 9:27
--- NOTE | 2016-08-11 09:29 | PCM.PNMED ---
Subjective Date of Service Aug 11, 2016 Subjective package wrapper, pt c/o moderate chest pain, pleuritic but more pressure on mild chest, not left side. STAT EKG didn't show any ischemic chg. denied SOB, pain was much less than initial pain she had, US didn't show fluid pocket which can be drained, abx changed by yesterday Exam Vital Signs Vital Sign - Last Date Time Temp Pulse Resp B/P Pulse Ox O2 Delivery O2 Flow Rate FiO2 08/11/16 07:23 78 18 88 Room Air 08/11/16 06:02 36.6 149/63 08/09/16 12:23 2 Intake and Output 08/10/16 08/10/16 08/11/16 Cumulative From/Thru 15:00 23:00 07:00 08/09/16 08:09 - 08/11/16 06:02 Intake Total 1266 ml 720 ml 3820 ml Output Total 1100 ml 1125 ml 3475 ml Balance 166 ml -405 ml 345 ml Intake Oral 720 ml 720 ml 1796 ml IV Total 546 ml 2024 ml Output Urine Total 1100 ml 1125 ml 3475 ml # Bowel Movements 0 0 Exam NAD, comfortably laying down on the bed no JVD, MMM, no LAD RRR, nl s1, s2 no mrg decreased BS on lt base S,ND,NT,normoactive BS+ warm, no edema, pulses 2/2 IVs and Medications Medications Reviewed: Medications were reviewed in detail Lab and Diagnostics Result Diagram: 08/11/1630 08/11/1630 Microbiology Blood and urine cultures are pending Name: NEHA VÁZQUEZ Age/Sex: 71/F Attend Dr: Dewayne Otero MD Acct: [id number] Unit: [id number] Status: DIS Lizzie Location[place] [facility] [place] 3007-1 Re08/04/16 Disch: 08/05/16 Specimen: [id number] Collected: 08/04/16 Status: COMP Req#: [id number] Received: 08/04/16 Source: RANDOM Sp Desc : Subm Dr: Wolfgang Mane Ordered: URINE CULT Procedure Result Verified Site Microbiology ARCELIA CULT URINE Final 08/06/16 Organism 1 ENTEROCOC FAECALIS - (GROUP D) U COLONY COUNT/QUANTITY >100,000 CFU/ml For Enterococcus species, cephalosporins, aminoglycosides (except high level resistance screening), clindamycin, and trimethoprim-sulfamethoxazole are not effective clinically and should not be used. If penicllin is susceptible, ampicllin and amoxicillin can be considered as valid treatment options for urinary tract infections. (M100S 26th ed. CLSI 2016) 1. ENTEROCOC FAECALIS - (GROUP D) M.I.C Interp --------- ------ * CIPROFLOXACIN <=0.5 S * LEVOFLOXACIN 1 S * NITROFURANTOIN <=16 S * PENICILLIN-G 4 S * TETRACYCLINE <=1 S * VANCOMYCIN 1 S X-Rays, CTs and MRIs PROCEDURE: X-RAY CHEST ONE VIEW, PORTABLE ([id number]) INDICATIONS: CP TECHNIQUE: One view of the chest was acquired. COMPARISON: [facility], CT, CT ANGIO CHEST PE, 08/04/2016, 3:19. [facility], CR, XR CHEST 1VW (PORTABLE), 08/04/2016, 1:37. FINDINGS: Surgical changes and devices: None. Lungs and pleura: No pneumothorax. Small left pleural effusion. Moderate left basilar airspace opacity. Mediastinum: Mediastinal contours appear normal. Heart size is normal. Bones and chest wall: No suspicious bony lesions. Overlying soft tissues appear unremarkable. IMPRESSION: Left basilar pneumonia with small parapneumonic effusion. Dictated by: Abril Valentine M.D. on 08/09/2016 at 8:59 Approved by: Abril Valentine M.D. on 08/09/2016 at 8:59 Cardiac Echo Impressions Echocardiogram Report Name: NEHA VÁZQUEZ PStudy Date: 08/04/2016 Height: 63 in Hospital Exam Location: [facility] Weight: 143 lb Gender: Female BSA: 1.7 m2 : 1945 Age: 71 yrs BP: 144/46 mmHg Reason For Study: Chest pain Ordering Physician: Performed By: Letitia Trinidad Referring Physician: [facility] Interpretation Summary Normal left ventricle size with ejection fraction 60-65%. Grade I diastolic dysfunction. Moderate aortic valve sclerosis. No valvular regurgitation. Assessment & Plan The patient is a 71 year old female with history of DM, COPD, CAD ( nonobstructive per recent cath on 06/2016) who was recently hospitalized at [facility] on 06/2016 with diagnosis of NSTEMI, NICM, and non-obstructive CAD who was admitted to [facility] with complaint of acute left sided chest pain on 08/04/2016. acute, active # Acute chest pain and shortness of breath. present on admission. due to pneumonia of the left lower lobe with presumed parapneumonic effusion, infectious etiology. ruled out ACS with negative EKG chg, serial trops.PE ruled out with negative CTA chest on 08/04/2016. CXR 08/10 showed stable effusion. -clinically improved with abx, no signs of pleural irritation, increasing effusion, -received vanc/zosyn for HCAP in ED, switched to Levaquin 500 mg IV every 24 hours, continue for 14days. -will pursue thoracentesis diagnostic/therapeutic, however, given US findings, will get chest CT to visualize fluid better. # Asymptomatic urinary tract infection. present on previous admission secondary to group D strep (with significant pyuria on urinalysis with greater than 50 white blood cells and greater than 100,000 colonies per milliliter of group B strep). UCX 08/09 showed enterococcus, pansensitive. -started IV Unasyn 3 g IV every 6 hours for UTI, switched to amoxicillin, appreciate ID input chronic, stable, resolved # Acute kidney injury, on recent admission appears to be at baseline. - likely pre-renal from recent diuretic medications - Resolved with gentle IVF - further f/u as outpatient # Acute transaminitis of unclear etiology. 9 recent admission. - pt insists on being discharged today and wishes to f/u w/ PCP as outpatient - Need to followup with primary care provider for further workup or to ensure resolution. # History of diabetes mellitus - HgA1C 5.2 # History of COPD. stable - We will continue with home inhalers as needed # Recent report of non-ischemic cardiomyopathy, present on admission, probable "Takotsubo Cardiomyopathy".Echo unremarkable on 07/27/2016 with intact EF. This is despite a report of reduced EF of 30% per ventriculography from recent hospitalization on 06/2016 at [facility]. She had negative cardiac cath between 06/30/2016 and 07/05/2016. - We will continue with home dose ASA, Statin and metoprolol Disposition:delayed given persistent sx with effusion, 1-2more days dvt ppx: LMWH diet: cardiac addendum> Chest CT showed bilateral small effusion, moderate size pericardial effusion, new onset since 08/04, last admission, will consult Cardiology for possible pericardiocentesis, repeat TTE.working diagnosis infectious vs pericarditis GI Prophylaxis: Proton Pump Inhibitor VTE Prophylaxis: Sub-Q Enoxaparin Resuscitation Status: CPR: Attempt Resuscitation Time spent 35min Misty Fields MD Aug 11, 2016 09:29
--- NOTE | 2016-08-11 09:40 | DRSVH ---
PROCEDURE: CT CHEST WITHOUT CONTRAST ([id number]) INDICATIONS: lt pleural effusion not visiable on US TECHNIQUE: Noncontrast 5 mm thick sections acquired from the pulmonary apices to the posterior costophrenic angl es. 7 mm thick coronal and sagittal MIP reformats were then acquired. For radiation dose reduction, the following was used: automated exposure control, adjustment of mA and/or kV according to patient size. COMPARISON: [facility], CT, CT ANGIO CHEST PE, 08/04/2016, 3:19. FINDINGS: Image quality: Excellent. Lungs and pleura: Moderate centrilobular emphysema with an apical predominance. Mild peripheral intra lobular septal thickening in the upper lung suggest early pulmonary fibrosis. There are small bilater al low density pleural effusions which are new when compared with prior study dated 08/04/16. Consolid ation or compressive atelectasis is present at the left lung base as well. Mediastinum: Heart size is normal. There is a moderate size low density pericardial effusion which i s new when compared with the study dated 08/04/16. No mediastinal adenopathy by size criteria. Thora cic aorta and central pulmonary arteries are normal in size. Scattered atheromatous calcifications ar e present within the aortic arch. Esophagus is normal in caliber. No hiatal hernia. Bones and chest wall: No suspicious bony lesions. No vertebral body compression fractures. No axil neha or supraclavicular adenopathy by size criteria. Thyroid gland is unremarkable. Abdomen: Visualized upper abdominal solid organs and bowel loops appear normal in the absence of con trast. IMPRESSION: 1. New bilateral pulmonary effusions and new pericardial effusion when compared with prior chest CT d ated 08/04/16. 2. Left basilar consolidation suspicious for aspiration/infection versus atelectasis. These findings were discussed with Dr. Fields at 9:35 AM on 08/11/16. Dictated by: Sharron Seymour M.D. on 08/11/2016 at 9:33 Approved by: Sharron Seymour M.D. on 08/11/2016 at 9:39
--- NOTE | 2016-08-11 10:49 | PROG NOTE ---
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 Recall this is the 71-year-old woman who had a myocardial infarction about six weeks ago and now is admitted with shortness of breath and chest pain. A CT angiogram done in the ED was negative but she came back August 09 and was admitted with more shortness of breath and the appearance of a left-sided effusion. The initial concern was whether this was a bacterial, viral or other pulmonary infection or whether this could be an autoimmune process like Sravani syndrome. The patient did not have urinary symptoms at the time of her admission but she did have heavy pyuria and her urine grew Enterococcus so there was discussion about whether that was significant or not. We had decided to keep the patient on a short course of amoxicillin for possible enterococcal UTI and to continue the levofloxacin for possible community-acquired pneumonia. Overnight, the patient reports that she has had some shortness of breath but no fevers, chills or sweats. This morning she reports the onset of substernal chest pain which she says like it feels like a small person is sitting on her chest. This is not that different from the symptoms that brought her to the emergency department originally twice during the past week. She has no cough at all really though she is a bit short of breath and denies pleuritic chest pain though she does seem to be experiencing what sounds like pericardial type chest pain. No nausea, vomiting, diarrhea. No dysuria is noted. No skin rash. PHYSICAL EXAMINATION: Reveals a comfortable appearing woman who is complaining of chest pain. She has been afebrile since admission two days ago. Temperature is currently 36.6, pulse 78, respiratory rate 18, blood pressure 149/63, and her O2 sat has dropped from the mid 90s where it had been down suddenly to 88. The patient is alert and oriented today. Oral cavity negative. Lungs: Perhaps a bit of decreased breath sounds at the bases bilaterally but no rales or rhonchi are heard. Cardiac tones: Regular rate and rhythm with about a 2/6 murmur heard best along the left upper sternal border. I did not hear a rub, either a pleural or pericardial rub. Abdomen is soft and nontender. No skin rash. LABORATORIES: Today include a white count which was down to 11,300, 75% segs. Her creatinine is 0.99. A CRP is a remarkable 26 which is over 50 times the upper limit of normal. Procalcitonin continues in a range between 0.15 and 0.2. Urinalysis of course was packed with white cells and grew Enterococcus though the patient has no symptoms. Cryptococcal antibody is pending but that should be cryptococcal antigen and will clarify that. Urine pneumococcal antigen is negative. Nasopharyngeal respiratory viral PCR negative. Urine grew Enterococcus as noted which was sensitive to amoxicillin and we have negative blood cultures. IMAGING: Includes a chest CT from this morning which shows bilateral pleural effusions and a pericardial effusion, all of which are new in the past two weeks since the CT of the in the ED. It is a moderate sized pericardial effusion. As noted previously, the patient does have emphysema with perhaps early pulmonary fibrosis. A small area of atelectasis or consolidation is present at the left base. IMPRESSION: This is a confusing case of a woman who until recently was a heavy smoker and was admitted with a myocardial infarction to [facility] in mid June. She has now developed multiple episodes including one today of shortness of breath associated with some substernal chest pain. Pulmonary embolism has been ruled out on a couple occasions and this is not behaving as a pneumonia typically would in that the patient does not have fever nor does she have much in the way of cough or purulent sputum. Sravani syndrome was raised as a possibility by Dr. Nguyen during her admission a few days ago and I think this is becoming an increasingly possible concern. She does not have a rub, either pericardial or pleural, but she does have bilateral pleural effusions which are new as well as now pericardial effusion which is new and an atypical sort of chest pain. I doubt that she has a bacterial pneumonia though it cannot be excluded. Likewise I think that the Enterococcus in the urine represents colonization though it is a little surprising that she has more than 50 white cells. RECOMMENDATIONS: 1. Will continue with the amoxicillin for three day course, then stop. 2. Will continue the levo probably for about five days and then stop as there is really little compelling evidence for bacterial pneumonia. 3. We await the pending cultures and other studies. 4. In view of her strikingly elevated CRP and pericardial and pleural effusions, the diagnosis of Sravani syndrome must be strongly considered. It is also possible, of course, she is having myocardial ischemia so this morning there has been an echo ordered and an EKG has just been ordered to complement the echo to better evaluate the pericardium. 5. Cardiology consult may be quite reasonable if not already down to seek their input on the possible diagnosis of Sravani syndrome. Thank you very much and we will continue to closely follow this fascinating case.
--- NOTE | 2016-08-11 14:50 | NUR ---
Social Work Note - Continued Discharge Planning: D/A: The Pt is a 71 y/o female that is now on day 2 of hospitalization for hospital acquired pneumonia, hypoxia. ID following, will continue amoxicillin for three days and levo for about five days. Pending cultures and studies pending. Echo and EKG have been ordered. May possibly consider a Cardiology consult. PT eval completed on 08/10/16, recommending discharge home if able to progress ambulation safety. Ambulating 250ft. Will see 1-2 more times. OT pending. SW also discussed concerns regarding her former living situation, see H&P. The Pt confirms the information provided in the H&P, reports that her sons charlotte no longer lives in her home and has not lived there in almost two years. She stated that this charlotte still lives in the motel they use to share and she now lives back in her own home with her son, [id number], and four year old granddaughter. The Pt denies any needs at this time, SW to follow if needs arise. P: The Pt is not medically stable for discharge at this time. ID following, see note. PT following, OT pending. The Pt will likely discharge back home when medically stable family or friends providing transportation. Jessica Chapa, [employer] Felisha Cuevas MSW
--- NOTE | 2016-08-11 19:14 | NUR ---
Numbness/Activity Patient complained of some numbness to distal fingers and tip of the tongue earlier on the shift, Dr. Griffin and Dr. Fields aware. Still awaiting cardio consult. Patient ambulating well in the room. No further discomfort noted. Will continue to monitor.
[2016-08-12] VITALS (12 sets, daily range): BP systolic 122–162; BP diastolic 57–76; PULSE 63–88; RESP 16–22; O2SAT 92–100
[2016-08-12] MEDS: Sodium Chloride LOK Flush 10 mL Syringe IVFLUSH SCH ×4 (01:51→23:40)
--- NOTE | 2016-08-12 05:37 | NUR ---
Shift note Uneventful night w/exception of waking w/neck discomfort took prn Tylenol w.effect but mainly "just sore from lying in bed too much"
[2016-08-12] MEDS: Pantoprazole 40 mg ER24 Tablet PO SCH (06:07)
[2016-08-12 06:11] LABS: BASOPHILS % (AUTO) 0.3 % (0-3); EOSINOPHILS % (AUTO) 1.5 % (0-5); MONOCYTES % (AUTO) 11.3 % (4-12); Mean Corpuscular Hemoglobin 32.2 pg (27.0-35.0); Mean Corpuscular Volume 102.4 fL (81-100); NEUTROPHILS % (AUTO) 70.5 % (40-74); Platelet Count 504 bil/L (150-400)
[2016-08-12 06:32] LABS: Magnesium 1.9 mg/dL (1.6-2.6)
--- NOTE | 2016-08-12 06:41 | NUR ---
HGB Am hgb critical @ 6.7 made aware ordered for repeat stat CBC
[2016-08-12 06:51] LABS: ERYTHROCYTE SEDIMENTATION RATE > 140 mm/hr (0-40)
[2016-08-12] MEDS: Albuterol 2.5 mg/3 mL Inhalation Solution NEB SCH ×2 (07:37→20:22)
[2016-08-12] MEDS: levoFLOXacin 500 mg Tablet PO SCH (07:48)
--- NOTE | 2016-08-12 08:56 | PCM.PNMED ---
Subjective Date of Service Aug 12, 2016 Subjective no overnight event pt was found to have acute anemia on labs hgb<7, denied any episode of GIB denied SOB, cough, pleuritic chest pain, epigastric pain, abdominal pain pt looked more pale today, was able to go to the bathroom, denied lightheadedness Exam Vital Signs Vital Sign - Last Date Time Temp Pulse Resp B/P Pulse Ox O2 Delivery O2 Flow Rate FiO2 08/12/16 07:39 70 18 92 Room Air 08/12/16 06:02 36.6 144/65 08/11/16 21:55 2.00 Intake and Output 08/11/16 08/11/16 08/12/16 Cumulative From/Thru 15:00 23:00 07:00 08/09/16 08:09 - 08/12/16 06:09 Intake Total 1030 ml 600 ml 6450 ml Output Total 1200 ml 4675 ml Balance 1030 ml -600 ml 1775 ml Intake Oral 1010 ml 600 ml 3406 ml IV Total 20 ml 3044 ml Output Urine Total 1200 ml 4675 ml # Voids 4 4 # Bowel Movements 0 Exam NAD, comfortably laying down on the bed no JVD, MMM, no LAD RRR, nl s1, s2 no mrg CTAB, no w,c S,ND,NT,normoactive BS+ warm, no edema, pulses 2/2 IVs and Medications Medications Reviewed: Medications were reviewed in detail Lab and Diagnostics Result Diagram: 08/12/1652908/12/16529 Microbiology Blood and urine cultures are pending Name: NEHA VÁZQUEZ Age/Sex: 71/F Attend Dr: Dewayne Otero MD Acct: [id number] Unit: [id number] Status: DIS Lizzie Location: [facility] [place] 3007-1 Re08/04/16 Disch: 08/05/16 Specimen: [id number] Collected: 08/04/16 Status: BLAIR [facility]#: [id number] Received: 08/04/16 Source: RANDOM Sp Desc : Subm Dr: Wolfgang Mane Ordered: URINE CULT Procedure Result Verified Site Microbiology ARCELIA CULT URINE Final 08/06/16 Organism 1 ENTEROCOC FAECALIS - (GROUP D) U COLONY COUNT/QUANTITY >100,000 CFU/ml For Enterococcus species, cephalosporins, aminoglycosides (except high level resistance screening), clindamycin, and trimethoprim-sulfamethoxazole are not effective clinically and should not be used. If penicllin is susceptible, ampicllin and amoxicillin can be considered as valid treatment options for urinary tract infections. (M100S 26th ed. CLSI 2016) 1. ENTEROCOC FAECALIS - (GROUP D) M.I.C Interp --------- ------ * CIPROFLOXACIN <=0.5 S * LEVOFLOXACIN 1 S * NITROFURANTOIN <=16 S * PENICILLIN-G 4 S * TETRACYCLINE <=1 S * VANCOMYCIN 1 S X-Rays, CTs and MRIs PROCEDURE: X-RAY CHEST ONE VIEW, PORTABLE ([id number]) INDICATIONS: CP TECHNIQUE: One view of the chest was acquired. COMPARISON: [facility], CT, CT ANGIO CHEST PE, 08/04/2016, 3:19. [facility], CR, XR CHEST 1VW (PORTABLE), 08/04/2016, 1:37. FINDINGS: Surgical changes and devices: None. Lungs and pleura: No pneumothorax. Small left pleural effusion. Moderate left basilar airspace opacity. Mediastinum: Mediastinal contours appear normal. Heart size is normal. Bones and chest wall: No suspicious bony lesions. Overlying soft tissues appear unremarkable. IMPRESSION: Left basilar pneumonia with small parapneumonic effusion. Dictated by: Abril Valentine M.D. on 08/09/2016 at 8:59 Approved by: Abril Valentine M.D. on 08/09/2016 at 8:59 Cardiac Echo Impressions Echocardiogram Report Name: NEHA VÁZQUEZ PStudy Date: 08/04/2016 Height: 63 in Hospital Exam Location: [facility] Weight: 143 lb Gender: Female BSA: 1.7 m2 : 1945 Age: 71 yrs BP: 144/46 mmHg Reason For Study: Chest pain Ordering Physician: Performed By: Letitia Trinidad Referring Physician: [facility] Interpretation Summary Normal left ventricle size with ejection fraction 60-65%. Grade I diastolic dysfunction. Moderate aortic valve sclerosis. No valvular regurgitation. Assessment & Plan The patient is a 71 year old female with history of DM, COPD, CAD ( nonobstructive per recent cath on 06/2016) who was recently hospitalized at [facility] on 06/2016 with diagnosis of NSTEMI, NICM, and non-obstructive CAD who was admitted to [facility] with complaint of acute left sided chest pain on 08/04/2016. acute, active # Acute chest pain and shortness of breath. present on admission. initially thought to LLL PNA with presumed parapneumonic effusion, ruled out ACS with negative EKG chg, serial trops.pt didn't have PE on CTA chest on 08/04/2016. CT chest 08/11 showed new onset moderate amount pericardial effusion, bilateral small pleural effusion. Cardiology was consulted. 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 # Asymptomatic urinary tract infection. present on previous admission secondary to group D strep (with significant pyuria on urinalysis with greater than 50 white blood cells and greater than 100,000 colonies per milliliter of group B strep). UCX 08/09 showed enterococcus, pansensitive. -started IV Unasyn 3 g IV every 6 hours for UTI, switched to amoxicillin, appreciate ID input #acute blood loss anemia, POA, likely represent true blood loss, unlikely dilutional no IVF was given, no signs of hemolysis, unclear origin, ? hemorrhagic pericardial effusion, early GIB, -hold LMWH, aspirin for now -PPI 40iv bid -transfuse 1unit pRBC, trends CBC bid today -monitor stools closely/ chronic, stable, resolved # Acute kidney injury, on recent admission appears to be at baseline. - likely pre-renal from recent diuretic medications - Resolved with gentle IVF - further f/u as outpatient # Acute transaminitis of unclear etiology. 9 recent admission. - pt insists on being discharged today and wishes to f/u w/ PCP as outpatient - Need to followup with primary care provider for further workup or to ensure resolution. # History of diabetes mellitus - HgA1C 5.2 # History of COPD. stable - We will continue with home inhalers as needed # Recent report of non-ischemic cardiomyopathy, present on admission, probable "Takotsubo Cardiomyopathy".Echo unremarkable on 07/27/2016 with intact EF. This is despite a report of reduced EF of 30% per ventriculography from recent hospitalization on 06/2016 at [facility]. She had negative cardiac cath between 06/30/2016 and 07/05/2016. - We will continue with home dose ASA, Statin and metoprolol Disposition:pending given new findings, possibly 2-3more days dvt ppx: SCD diet: kept in NPO for now, cardiac GI Prophylaxis: Proton Pump Inhibitor VTE Prophylaxis: Sub-Q Enoxaparin Resuscitation Status: CPR: Attempt Resuscitation Time spent 65min Misty Fields MD Aug 12, 2016 08:56
--- NOTE | 2016-08-12 09:09 | DRSVH ---
Version 2 [facility] [address] [place] [address] Echocardiogram Report Name: NEHA VÁZQUEZ PStudy Date: 08/11/2016 Hospital Exam Location: [facility] Gender: Female : 1945 Age: 71 yrs BP: 149/63 mmHg Reason For Study: Pericardial Effusion Ordering Physician: HOSPITALIST SONIDOerformed By: Tucker Rodriguez Referring Physician: AKSHAT PALENCIA Interpretation Summary Limited Echo to assess for pericardial effusion: Small to moderate circumferential pericardial effusion present There are no echocardiographic or Doppler indications for cardiac tamponade. Compared to the Echo done 08/04/2016, pericardial effusion is new on today's study. ADDENDUM: changed reader to Dr. Calvert Procedure: A two-dimensional transthoracic echocardiogram with color flow and Doppler was performed in limited views only. The study quality was technically adequate. Comparison is made with the echocardiogram of 08/04/16. The patient was in normal sinus rhythm during the exam. Left Ventricle: The left ventricular ejection fraction is grossly normal. Great Vessels: The IVC is of normal diameter and collapses greater than 50% with a sniff. This suggests a low right atrial pressure of 3 mm Hg. Pericardium/ Pleura There are no echocardiographic or Doppler indications for cardiac tamponade. Small to moderate circumferential pericardial effusion present. There is a moderately large left-sided pleural effusion. Reading Physician:04:29 PM
[2016-08-12] MEDS: Sulfasalzine 500 mg Tablet PO SCH ×2 (09:39→20:30)
[2016-08-12] MEDS: Omega-3 Fatty Acids 1,000 mg Capsule PO SCH (09:41)
[2016-08-12] MEDS: Pantoprazole 4 mg/mL 10 mL Inj IVPUSH SCH ×2 (10:00→17:17)
[2016-08-12] MEDS ORDERED: 0.9% Sodium Chloride 100 ML ONE (11:27)
--- NOTE | 2016-08-12 13:30 | PROG NOTE ---
[address] [address] PROGRESS NOTE PATIENT: NEHA VÁZQUEZ : 1945 MR#: [id number] ADMIT: 08/09/2016 JOB ID: [id number] DATE: 08/12/2016 INFECTIOUS DISEASE FOLLOW UP NOTE: REASON FOR FOLLOWUP: Possible pneumonia in a patient with pleural effusions as well as now a large pericardial effusion as well as unexplained and worsening anemia. INTERVAL HISTORY: Overnight, the patient reports she feels okay. She denies significant fevers, chills or sweats. She has no significant shortness of breath, cough or chest pain. No significant GI symptomatology either. PHYSICAL EXAMINATION: Reveals a woman who is currently afebrile and in no acute distress. Respiratory rate is about 18, pulse approximately 80 and her blood pressure remains stable. She has pale conjunctivae. Her lungs are relatively clear bilaterally, perhaps some decreased breath sounds at the left base but really not impressive. Cardiac examination is regular rate and rhythm and the soft murmur I thought I heard yesterday is no longer present. No pericardial or pleural rubs are heard. The abdomen is benign. No skin rashes noted. LABORATORIES: Include a white blood count normalized 9100. Of interest her hematocrit continues to slide, currently 6.7, down from 9 just three days ago. Platelet count is slightly elevated at 504. Sed rate continues to be high, greater than 140, on multiple measurements. Her creatinine is 1.04, which is stable. LFTs are normal. Albumin 2.9. Procalcitonin 0.13. Urinalysis had pyuria, but not hematuria and the urine culture grew Enterococcus though the patient never had dysuria. Crypto antigen is pending. Blood cultures remain negative. Urine grew Enterococcus. IMPRESSION: This is a confusing case of a patient who was hospitalized with a cardiac event in June at [facility]. It is not clear if this was coronary ischemia or Takotsubo cardiomyopathy. She then presented here with chest pain and shortness of breath on two occasions which culminated in her admission on the . There have been concerns about a bacterial pneumonia though I am not convinced based on review of chest radiographs and her overall situation that she does have any degree of bacterial pneumonia even though she was, of course, placed on Levaquin. Likewise I think there is very little to indicate enterococcal UTI and more likely she has asymptomatic bacteriuria. Dr. 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 We are awaiting records from [facility] to clarify this. The possibility of an autoimmune process has also been raised by Dr. Vega of our team. It is possible that the patient's pleural effusions, pericardial effusions and unexplained worsening anemia as well as a history of miscarriages when she was a younger woman could all be explained by lupus or some related process. We have also discussed this case in person today with Dr. Calvert of Cardiology who is actively evaluating the patient. The echo done yesterday showed a moderate pericardial effusion and a large left pleural effusion. RECOMMENDATIONS: 1. Continue with the amoxicillin to finish three days of therapy and quit for what is probably asymptomatic bacteriuria. 2. Will continue for five days or so with levofloxacin and quit. 3. Additional labs to be checked today include LACY, lupus anticoagulant and LDH and haptoglobin to evaluate for autoimmune disease as well as hemolysis. 4. Will continue to closely follow this interesting and complex patient with you. 5. We again discussed the need to obtain records from [facility] so as to better understand what happened to her during the third week of June when she was hospitalized there.
--- NOTE | 2016-08-12 16:36 | NUR ---
BT Patient received 1 unit of PRBC, tolerated with no adverse side effects noted. VSS and recorded within normal limits. Cardio consult done today, medical records from [place] acquired and to be reviewed by Dr. Hager. Patient denies any further discomfort/chest pressure this shift. will continue to monitor.
--- NOTE | 2016-08-12 17:32 | PCM.CHPCAR ---
Consult Subjective Date of service Aug 12, 2016 Date of admit Aug 09, 2016 at 11:55 Provider Requesting Consult Primary Care Physician [facility] Phys[facility] Chief Complaint pericardial effusion History of Present Illness 71 yo W h/o rheumatoid arthritis admitted with chest pain. Patient states that she was in her usual state of health until about June of this year when she had dyspnea without chest pain. She was evaluated at [facility] and was found to have a troponin elevation. She underwent coronary angiogram that supposedly showed no obstructive disease (no report available for my review). She did well post hospitalization until late July 2016 when she presented to our hospital for pleuritic chest pain. She had an echocardiogram and CTA chest done, both of which were unremarkable. She was discharged home and did well until this weekend when she started having constant nonpleuritic chest pain and dyspnea with brisk walking. She also reports intermittent nausea but no vomiting. Since hospitalization, she had a CT scan of her chest that showed pericardial effusion. Repeat limited echo showed small to moderate sized circumferential pericardial effusion. On further history today, patient states that she feels comfortable now but is anxious to know what is going on. Denies dyspnea or chest pain at rest or with deep breathing. She also denies fevers, chills, lightheadedness, or syncope. She is noted to have anemia since admission that has gotten worse overnight. She denies hemoptysis, hematemesis, or melena. She does report having increased stress in her life over the past few months due to her stepson, who is a pedophile. Review of Systems Review of Systems per HPI and otherwise remarkable PMH Past Medical History # Rheumatoid arthritis # Hypertension # Diabetes Bedside Blood Glucose: 114 Scheduled Acetaminophen (Acetaminophen) 325 Mg Tablet 650 MG PO BID (Reported) Albuterol HFA (Proair HFA) 8.5 Gm Hfa.aer.ad 2 PUFF IH BID (Reported) Aspirin (Aspirin) 81 Mg Tablet 81 MG PO DAILY (Reported) Atorvastatin Calcium (Atorvastatin Calcium) 40 Mg Tablet 40 MG PO DAILY ( Reported) Cholecalciferol (Vitamin D3) (Vitamin D3) 5,000 Unit Tablet 5,000 UNIT PO DAILY (Reported) Cyanocobalamin (Vitamin B-12) (Vitamin B-12) 1,000 Mcg Tablet 1,500 MCG PO DAILY (Reported) Loratadine (Claritin) 10 Mg Capsule 10 MG PO DAILY (Reported) Magnesium Oxide (Mag-Oxide) 400 Mg Tablet 400 MG PO DAILY (Reported) Metformin HCl (Metformin HCl ER) 500 Mg Boiazvu14h 500 MG PO BID (Reported) Metoprolol Tartrate (Metoprolol Tartrate) 50 Mg Tablet 50 MG PO BID (Reported) Multivits-Min/FA/Lycopene/Lut (Centrum Silver Tablet) 1 Each Tablet 1 TABLET PO DAILY (Reported) Shiro-3 Fatty Acids/Fish Oil (Shiro 3 1,000 mg Softgel) 1 Each Capsule 1 CAPSULE PO DAILY (Reported) Omeprazole (Omeprazole) 20 Mg Capsule.dr 20 MG PO DAILY (Reported) Take 1 capsule by mouth before BREAKFAST Oxybutynin Chloride (Oxybutynin Chloride) 5 Mg Tablet 5 MG PO BID (Reported) Sulfasalazine (Sulfasalazine) 500 Mg Tablet 1,000 MG PO BID (Reported) Scheduled PRN Albuterol Sulfate (Proventil HFA Inhaler) 6.7 Gm Hfa.aer.ad 2 PUFF INH Q4 PRN PRN For Wheezing (Reported) Meclizine (Bonine) 25 Mg Tab.chew 25 MG PO TID PRN PRN For Dizziness (Reported) Nitroglycerin SL (Nitroglycerin SL) 0.4 Mg Tab.subl 0.4 MG PO PRN For Chest Pain (Reported) Miscellaneous Medications Iron (Iron) 18 Mg Tablet 65 MG PO (Reported) Discontinued Medications Calcium Carbonate/Vitamin D3 (Calcium + Vitamin D Tablet) 1 Each Tablet 1 TABLET PO DAILY (Reported) Calcium-D3 1200 mg-1000IU Ferrous Sulfate (Ferrous Sulfate) 325 Mg Tablet 325 MG PO DAILY (Reported) Furosemide (Furosemide) 40 Mg Tablet 40 MG PO DAILY (Reported) Hydrochlorothiazide (Hydrochlorothiazide) 12.5 Mg Capsule 12.5 MG PO DAILY ( Reported) Lisinopril (Lisinopril) 20 Mg Tablet 20 MG PO DAILY (Reported) Potassium Chloride (Potassium Chloride Powder) 20 Meq Packet 20 MEQ PO BIDWM ( Reported) Current Inpatient Medications Current Medications Pantoprazole 20 mg 0630 PO Last administered on 08/12/16 06:07; Admin Dose 20 MG ; Start 08/11/16 at 06:30; Stop 08/12/16 at 08:55; Status DC Levofloxacin 500 mg DAILYAC PO Last administered on 08/12/16 07:48; Admin Dose 500 MG; Start 08/11/16 at 07:30 Nitroglycerin 0.4 mg Q5MIN PRN SL; Start 08/11/16 at 01:00 Pantoprazole 40 mg BIDAC IVPUSH Last administered on 08/12/16 17:17; Admin Dose 40 MG; Start 08/12/16 at 08:55 Colchicine 0.6 mg BID PO Last administered on 08/12/16 15:54; Admin Dose 0.6 MG ; Start 08/12/16 at 12:00 Allergies: Coded Allergies: formaldehyde (Verified Allergy, Severe, Wheezing and cannot breathe, ) Family History Family History Son is healthy Social History Hx Alcohol Use: Yes (The patient drank for a few years well in the [employer] but then quit.)Hx Substance Use: NoHx Tobacco Use: Yes (The patient smoked 3-4 packs of cig per day until Jun 282016. She quit on that day when she was told that she had a "heart attack") Smoking Status: Former Smoker Living Arrangement: with Family Exam Vital Signs Vital Sign - Last Date Time Temp Pulse Resp B/P Pulse Ox O2 Delivery O2 Flow Rate FiO2 08/12/16 15:24 36.4 73 20 148/71 08/12/16 08:00 95 Room Air 08/11/16 21:55 2.00 Intake and Output 08/11/16 08/11/16 08/12/16 Cumulative From/Thru 15:00 23:00 07:00 08/09/16 08:09 - 08/12/16 06:09 Intake Total 1030 ml 600 ml 6450 ml Output Total 1200 ml 4675 ml Balance 1030 ml -600 ml 1775 ml Intake Oral 1010 ml 600 ml 3406 ml IV Total 20 ml 3044 ml Output Urine Total 1200 ml 4675 ml # Voids 4 4 # Bowel Movements 0 General appearance: NAD, well-nourished, pleasant, cooperative HEET: Normocephalic atraumatic, no scleral icterus, tongue midline, mucous membranes moist Neck: supple, + carotid bruits b/l Cardiovascular: RRR, normal S1 and normal S2, no murmurs/ rubs/gallops, PMI nondisplaced, no JVD, 1+ peripheral edema Respiratory: Fair aeration, decrease breath sounds at bases b/l Abdomen: Soft, nontender, nondistended, + bowel sounds Neuro: Alert, no facial droop, tongue midline, no gross motor deficits Psych: appropriate affect Skin: no rashes on face, neck, and lower extremities Lab and Diagnostics Result Diagram: 08/12/16 0530 08/12/16 0530 X-Rays, CTs and MRIs CTA chest 08/11/2016: 1. New bilateral pulmonary effusions and new pericardial effusion when compared with prior chest CT dated 08/04/16. 2. Left basilar consolidation suspicious for aspiration/infection versus atelectasis. Echo 08/11/2016: Limited Echo to assess for pericardial effusion: Small to moderate circumferential pericardial effusion present There are no echocardiographic or Doppler indications for cardiac tamponade. Compared to the Echo done 08/04/2016, pericardial effusion is new on today's study. 12-lead ECG ECG on admission shows sinus rhythm with nonspecific ST changes. Telemetry in the past 24 hours have shown no events Assessment & Plan Assessment 71 yo W h/o rheumatoid arthritis and HTN admitted with chest pain: # Chest pain: Patient self prescribed story of chest pain is probably suggestive of pericarditis started couple weeks ago (pleuritic chest pain). She now has a pericardial effusion that is small to moderate in size. There is no echocardiographic or clinical evidence of tamponade physiology. I do not have records of this patient's prior cardiac evaluation at [facility] for my review but I will obtain them and review them. Etiology of probable pericarditis is idiopathic but she does have history of rheumatoid arthritis that can cause pericarditis. It is unlikely patient is having acute coronary syndrome given fairly benign ECG and negative serial troponins. Recommendations as below: - Start colchicine 0.5mg bid - Use NSAIDs PRN chest pain - Obtain records from [facility] - Repeat echo in 3 months to assess pericardial effusion # Carotid Bruits: present bilaterally. Suspected to be due to plaque in carotid arteries but she has mild aortic stenosis based on echo 07/2016. I don' t hear a murmur in the aortic area but this could be due to significant pulmonary noise on auscultation. Plan: - Continue aspirin 81mg daily if okay from bleeding standpoint - Continue atorvastatin 40mg qhs - Carotid US as outpatient # Anemia: etiology unclear. Patient getting PRBC transfusion. Defer management to primary team. # HTN: BP elevated in the hospital. Consider uptitration of BP medications. Thank you for the interesting consultation. Pain Evaluation: Adequate Pain Control VTE Prophylaxis: Sub-Q Enoxaparin Resuscitation Status: CPR: Attempt Resuscitation Latonia Calvert MD Aug 12, 2016 17:32
[2016-08-12 18:53] LABS: BASOPHILS % (AUTO) 0.6 % (0-3); EOSINOPHILS % (AUTO) 2.6 % (0-5); MONOCYTES % (AUTO) 11.6 % (4-12); Mean Corpuscular Hemoglobin 32.1 pg (27.0-35.0); Mean Corpuscular Volume 96.9 fL (81-100); NEUTROPHILS % (AUTO) 62.8 % (40-74); Platelet Count 547 bil/L (150-400)
--- NOTE | 2016-08-12 23:45 | NUR ---
Constipation Has not had BM since prior admit Opted for prune juice and applesauce before trying miralax Addendum: 08/13/16 at 0341 by MARIE NAVA RN Finally able to have BM
[2016-08-13 00:15] VITALS: PULSE 69
[2016-08-13 02:13] VITALS: BP 158/61; PULSE 67; RESP 19; O2SAT 94
[2016-08-13 06:01] VITALS: BP 142/75; PULSE 75; RESP 19; O2SAT 96
[2016-08-13 06:21] LABS: BASOPHILS % (AUTO) 0.5 % (0-3); EOSINOPHILS % (AUTO) 1.8 % (0-5); MONOCYTES % (AUTO) 10.9 % (4-12); Mean Corpuscular Hemoglobin 32.3 pg (27.0-35.0); Mean Corpuscular Volume 97.2 fL (81-100); NEUTROPHILS % (AUTO) 70.8 % (40-74); Platelet Count 562 bil/L (150-400)
[2016-08-13 06:59] LABS: Magnesium 1.9 mg/dL (1.6-2.6)
[2016-08-13] MEDS ORDERED: COLC0.6T52 PO (07:38)
[2016-08-13] MEDS ORDERED: LEVO500T16 PO (07:39)
[2016-08-13] MEDS: Pantoprazole 4 mg/mL 10 mL Inj IVPUSH SCH (07:51)
[2016-08-13] MEDS: levoFLOXacin 500 mg Tablet PO SCH (07:52)
[2016-08-13] MEDS: Sodium Chloride LOK Flush 10 mL Syringe IVFLUSH SCH (07:53)
[2016-08-13] MEDS: Omega-3 Fatty Acids 1,000 mg Capsule PO SCH (07:53)
[2016-08-13] MEDS: Sulfasalzine 500 mg Tablet PO SCH (07:54)
[2016-08-13 08:00] VITALS: PULSE 75
[2016-08-13] MEDS: Albuterol 2.5 mg/3 mL Inhalation Solution NEB SCH (08:30)
--- NOTE | 2016-08-13 08:49 | PCM.DIMED ---
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 Please take Ibuprofen with Omeprazole twice a day and after meal. Stop taking if you feel heart burn, stomach pain, noticed bloody stools/black stools Please take Levofloxacin for pneumonia, 2more days Diet Heart Healthy Activity No restrictions Call your provider Shortness of breath, Chest pain Patient Instructions You were hospitalized with chest pain, found to have water surrounding your heart in the sac of the heart. You were also treated for urinary tract infection and pneumonia. Please follow medicine instruction as above. Please return to hospital, ER if you feel shortness of breath, persistent chest pain. Follow-up plan Please see Principal Database Developer for follow up until you set up appointment at [facility] We will set up appointment with new doctor at [facility] clinic until you establish care at [facility] Follow-up Provider: Latonia Calvert MD Follow-up with PCP in: 3 weeks Provider: [facility] Follow-up in: 1 week Misty Fields MD Aug 13, 2016 08:49
[2016-08-13] MEDS ORDERED: IBUP200C PO (08:51)
[2016-08-13] MEDS ORDERED: IBUP-1827 PO (08:51)
[2016-08-13] MEDS ORDERED: OMEP20CA11 PO (08:51)
[2016-08-13 09:23] LABS: ERYTHROCYTE SEDIMENTATION RATE > 140 mm/hr (0-40)
[2016-08-13 09:59] VITALS: BP 120/68; PULSE 66; RESP 20; O2SAT 98
--- NOTE | 2016-08-13 10:09 | PCM.DC.MED ---
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 acute blood loss anemia Acute kidney injury chronic #hx of acute transaminitis # History of diabetes mellitus # History of COPD # Recent report of non-ischemic cardiomyopathy probable "Takotsubo Cardiomyopathy" Consultations ID cardiology Procedures XRay, CTs & MRIs PROCEDURE: US CHEST/PLEURAL SONOGRAM INDICATIONS: lt pleural effusion COMPARISON: None. FINDINGS: Limited sonographic images of the left chest demonstrate a very small fluid pocket without a safe access for sampling. IMPRESSION: Limited fluid pocket without safe access for diagnostic thoracentesis. Dictated by: Anusha Lambert M.D. on 08/10/2016 at 14:54 Approved by: Anusha Lambert M.D. on 08/10/2016 at 14:54 PROCEDURE: CT CHEST WITHOUT CONTRAST ([id number]) INDICATIONS: lt pleural effusion not visiable on US TECHNIQUE: Noncontrast 5 mm thick sections acquired from the pulmonary apices to the posterior costophrenic angles. 7 mm thick coronal and sagittal MIP reformats were then acquired. For radiation dose reduction, the following was used: automated exposure control, adjustment of mA and/or kV according to patient size. COMPARISON: [facility], CT, CT ANGIO CHEST PE, 08/04/2016, 3:19. FINDINGS: Image quality: Excellent. Lungs and pleura: Moderate centrilobular emphysema with an apical predominance. Mild peripheral intralobular septal thickening in the upper lung suggest early pulmonary fibrosis. There are small bilateral low density pleural effusions which are new when compared with prior study dated 08/04/16. Consolidation or compressive atelectasis is present at the left lung base as well. Mediastinum: Heart size is normal. There is a moderate size low density pericardial effusion which is new when compared with the study dated 08/04/16. No mediastinal adenopathy by size criteria. Thoracic aorta and central pulmonary arteries are normal in size. Scattered atheromatous calcifications are present within the aortic arch. Esophagus is normal in caliber. No hiatal hernia. Bones and chest wall: No suspicious bony lesions. No vertebral body compression fractures. No axillary or supraclavicular adenopathy by size criteria. Thyroid gland is unremarkable. Abdomen: Visualized upper abdominal solid organs and bowel loops appear normal in the absence of contrast. IMPRESSION: 1. New bilateral pulmonary effusions and new pericardial effusion when compared with prior chest CT dated 08/04/16. 2. Left basilar consolidation suspicious for aspiration/infection versus atelectasis. These findings were discussed with Dr. Palencia at 9:35 AM on 08/11/16. Dictated by: Sharron Seymour M.D. on 08/11/2016 at 9:33 Approved by: Sharron Seymour M.D. on 08/11/2016 at 9:39 PROCEDURE: X-RAY CHEST ONE VIEW, PORTABLE ([id number]) INDICATIONS: CP TECHNIQUE: One view of the chest was acquired. COMPARISON: [facility], CT, CT ANGIO CHEST PE, 08/04/2016, 3:19. [facility], CR, XR CHEST 1VW (PORTABLE), 08/04/2016, 1:37. FINDINGS: Surgical changes and devices: None. Lungs and pleura: No pneumothorax. Small left pleural effusion. Moderate left basilar airspace opacity. Mediastinum: Mediastinal contours appear normal. Heart size is normal. Bones and chest wall: No suspicious bony lesions. Overlying soft tissues appear unremarkable. IMPRESSION: Left basilar pneumonia with small parapneumonic effusion. Dictated by: Abril Valentine M.D. on 08/09/2016 at 8:59 Approved by: Abril Valentine M.D. on 08/09/2016 at 8:59 Cardiac Echo Impression Echocardiogram Report Name: NEHA VÁZQUEZ PStudy Date: 08/11/2016 Hospital Exam Location: [facility] Gender: Female : 1945 Age: 71 yrs BP: 149/63 mmHg Reason For Study: Pericardial Effusion Ordering Physician: HOSPITALIST SVHPerformed By: Tucker Rodriguez Referring Physician: MISTY PALENCIA Interpretation Summary Limited Echo to assess for pericardial effusion: Small to moderate circumferential pericardial effusion present There are no echocardiographic or Doppler indications for cardiac tamponade. Compared to the Echo done 08/04/2016, pericardial effusion is new on today's study. ADDENDUM: changed reader to Dr. Calvert Brief History HPI obtained by on 08/09 71 yo W h/o rheumatoid arthritis admitted with chest pain. Patient states that she was in her usual state of health until about June of this year when she had dyspnea without chest pain. She was evaluated at [facility] and was found to have a troponin elevation. She underwent coronary angiogram that supposedly showed no obstructive disease (no report available for my review). She did well post hospitalization until late July 2016 when she presented to our hospital for pleuritic chest pain. She had an echocardiogram and CTA chest done, both of which were unremarkable. She was discharged home and did well until this weekend when she started having constant nonpleuritic chest pain and dyspnea with brisk walking. She also reports intermittent nausea but no vomiting. Since hospitalization, she had a CT scan of her chest that showed pericardial effusion. Repeat limited echo showed small to moderate sized circumferential pericardial effusion. On further history today, patient states that she feels comfortable now but is anxious to know what is going on. Denies dyspnea or chest pain at rest or with deep breathing. She also denies fevers, chills, lightheadedness, or syncope. She is noted to have anemia since admission that has gotten worse overnight. She denies hemoptysis, hematemesis, or melena. She does report having increased stress in her life over the past few months due to her stepson, who is a pedophile. Hospital Course The patient is a 71 year old female with history of DM, COPD, CAD ( nonobstructive per recent cath on 06/2016) who was recently hospitalized at [facility] on 06/2016 with diagnosis of NSTEMI, NICM, and non-obstructive CAD who was admitted to [facility] with complaint of acute left sided chest pain on 08/04/2016. acute # Acute chest pain and shortness of breath. present on admission. Initially thought to be from LLL PNA with presumed parapneumonic effusion, ruled out ACS with negative EKG chg, serial trops.pt didn't have PE on CTA chest on 2016. CT chest without contrast 08/11 showed new onset moderate amount pericardial effusion, bilateral small pleural effusion. Pleural effusion was small for thoracentesis. Cardiology was consulted. 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 Patient clinically remained stable with no signs of tamponade, HD stable. As per Cardiology , pt didn't need pericardiocentesis,started Colchicine, patient developed mild diarrhea but tolerated well, plan is to continue colchicine or ibuprofen in case patient cannot tolerate, then follow up with in the clinic to repeat TTE. Patient also received vanc/zosyn for HCAP in ED, then switched to Levaquin 500 mg IV every 24 hours, plan to finish 5days course per ID. # Asymptomatic urinary tract infection. present on previous admission patient had group D strep (with significant pyuria on urinalysis with greater than 50 white blood cells and greater than 100,000 colonies per milliliter of group B strep). UCX / showed enterococcus, pansensitive, patient started on IV Unasyn 3 g IV every 6 hours for UTI, switched to amoxicillin to finish 3days course per ID #acute blood loss anemia, POA, hgb dropped gradually from 9 to 6.7, likely represent true blood loss, unlikely dilutional no IVF was given, no signs of hemolysis, Origin is still unclear no signs of GIB observed, unlikely hemorrhagic effusion. briefly held LMWH, aspirin but h/h remained stable after 1unit of transfusion. patient was given PPI 40iv bid for 1-2days. Given stable h /h, no signs of active GIB, patient was recommend to continue PPI bid(from daily at home), especially possible NSAID use. chronic, stable, resolved # Acute kidney injury, on recent admission appears to be at baseline. likely pre -renal from recent diuretic medications, resolved with gentle IVF #hx of acute transaminitis, remained normal # History of diabetes mellitus, HgA1C 5.2 # History of COPD. stable, continued with home inhalers as needed # Recent report of non-ischemic cardiomyopathy, present on admission, probable "Takotsubo Cardiomyopathy".Echo unremarkable on 07/27/2016 with intact EF. This is despite a report of reduced EF of 30% per ventriculography from recent hospitalization on 06/2016 at [facility]. She had negative cardiac cath between 06/30/2016 and 07/05/2016. continued with home dose ASA, Statin and metoprolol Exam Vital Signs (Last) Date Time Temp Pulse Resp B/P Pulse Ox O2 Delivery O2 Flow Rate FiO2 08/13/16 06:01 37.1 75 19 142/75 96 Room Air 08/11/16 21:55 2.00 Exam NAD, comfortably laying down on the bed no JVD, MMM, no LAD RRR, nl s1, s2 no mrg decreased BS on LLL S,ND,NT,normoactive BS+ warm, no edema, pulses 2/2 Test 08/09/16 08:10 08/09/16 09:18 08/09/16 09:25 08/09/16 09:40 Hemoglobin A1c 5.2% (4.8-5.6) Lactic Acid Level 1.3mmol/L (0.4-2.0) Hold Blue Top Tube Received (Received) Urine Color Yellow (YELLOW) Urine Appearance Cloudy (CLEAR,HAZY) Urine pH 5.5 (5.0-8.0) Urine Specific [place] 1.019 (1.003-1.035) Urine Protein Negativemg/dL (NEG,TRACE) Urine Glucose (UA) Negativemg/dL (NEGATIVE) Urine Ketones Negativemg/dL (NEGATIVE) Urine Occult Blood Small (NEGATIVE) Urine Nitrite Negative (NEGATIVE) Urine Bilirubin Negative (NEGATIVE) Urine Urobilinogen Normalmg/dL (NORMAL) Urine Leukocyte Esterase Moderate (NEGATIVE) Urine RBC 0-2/hpf (0-2) Urine WBC >50/hpf (0-5) Urine Epithelial Cells Occasional/hpf (NONE-MOD) Urine Crystals None seen (NONE SEEN) Urine Bacteria Few/hpf (NONE-FEW) Urine Hyaline Casts None/lpf (NONE) Urine Granular Casts None seen (NONE SEEN) Urine Waxy Casts None seen (NONE SEEN) Urine Red Blood Cell Casts None seen (NONE SEEN) Urine White Blood Cell Casts None seen (NONE SEEN) Urine Mucus None seen (None Seen) Urine Trichomonas None seen (NONE SEEN) Urine Yeast None (NONE SEEN) Urinalysis Comment None Urine Culture Reflexed Indicated Test 08/10/16 05:50 08/10/16 11:20 08/10/16 15:00 08/11/16 01:10 Pro-B-Type Natriuretic Peptide 1587pg/mL (0-301) Thyroid Stimulating Hormone (TSH) 2.870uIU/mL (0.450-4.500) Prothrombin Time 11.0sec (8.1-12.5) Prothromb Time International Ratio 1.03ratio Urine Legionella pneumophilia Ag Negative (Negative) Troponin T 0.010ug/L (0.0-0.011) Test 08/11/16 06:30 08/12/16 05:30 08/12/16 12:11 08/13/16 05:50 Haptoglobin 330mg/dL (34-200) Lactate Dehydrogenase 195U/L (100-190) C-Reactive Protein 20.3mg/dL (0.0-0.5) Triglycerides Level 112mg/dL (0-149) Cholesterol Level 142mg/dL (100-199) LDL Cholesterol, Calculated 87.600mg/dL (0-99) VLDL Cholesterol 22.400mg/dL HDL Cholesterol 32mg/dL (>39) Cholesterol/HDL Ratio 4.44 (0.0-4.4) Procalcitonin 0.13ng/mL (0.00-0.08) White Blood Count 8.1th/mm3 (3.8-10.1) Red Blood Count 2.88mil/mm3 (3.90-5.20) Hemoglobin 9.3g/dL (12.0-15.6) Hematocrit 28.0% (35.0-46.0) Mean Corpuscular Volume 97.2fL (81-100) Mean Corpuscular Hemoglobin 32.3pg (27.0-35.0) Mean Corpuscular Hemoglobin Concent 33.2% (32.0-37.0) Red Cell Distribution Width 15.5% (12.3-15.4) Platelet Count 562bil/L (150-400) Neutrophils (%) (Auto) 70.8% (40-74) Lymphocytes (%) (Auto) 15.4% (14-46) Monocytes (%) (Auto) 10.9% (4-12) Eosinophils (%) (Auto) 1.8% (0-5) Basophils (%) (Auto) 0.5% (0-3) Erythrocyte Sedimentation Rate > 140mm/hr (0-40) Sodium Level 141mEq/L (134-144) Potassium Level 4.9mEq/L (3.5-5.2) Chloride Level 102mEq/L (97-108) Carbon Dioxide Level 24mmol/L (18-29) Blood Urea Nitrogen 10mg/dL (8-27) Creatinine 0.95mg/dL (0.57-1.00) Estimat Glomerular Filtration Rate 83mL/min (>59) Glucose Level 120mg/dL (60-99) Calcium Level 9.4mg/dL (8.5-10.1) Magnesium Level 1.9mg/dL (1.6-2.6) Total Bilirubin 0.5mg/dL (0.0-1.2) Aspartate Amino Transf (AST/SGOT) 27U/L (0-50) Alanine Aminotransferase (ALT/SGPT) 30U/L (0-32) Alkaline Phosphatase 212U/L (25-165) Total Protein 6.4g/dL (6.4-8.4) Albumin 3.3g/dL (3.4-5.0) Microbiology Results Blood and urine cultures are pending Name: TAYLORNEHA COTA Age/Sex: 71/F Attend Dr: Dewayne Otero MD Acct: [id number] Unit: [id number] Status: DIS Lizzie Location: [facility] 3007-1 Re08/04/16 Disch: 08/05/16 Specimen: [id number] Collected: 08/04/16 Status: BLAIR Req#: [id number] Received: 08/04/16 Source: RANDOM Sp Desc : Subm Dr: Wolfgang Mane Ordered: URINE CULT Procedure Result Verified Site Microbiology ARCELIA CULT URINE Final 08/06/16-49 Organism 1 ENTEROCOC FAECALIS - (GROUP D) U COLONY COUNT/QUANTITY >100,000 CFU/ml For Enterococcus species, cephalosporins, aminoglycosides (except high level resistance screening), clindamycin, and trimethoprim-sulfamethoxazole are not effective clinically and should not be used. If penicllin is susceptible, ampicllin and amoxicillin can be considered as valid treatment options for urinary tract infections. (M100S 26th ed. CLSI 2016) 1. ENTEROCOC FAECALIS - (GROUP D) M.I.C Interp --------- ------ * CIPROFLOXACIN <=0.5 S * LEVOFLOXACIN 1 S * NITROFURANTOIN <=16 S * PENICILLIN-G 4 S * TETRACYCLINE <=1 S * VANCOMYCIN 1 S Discharge Medications Discharge Medications Acetaminophen (Acetaminophen) 325 Mg Tablet 650 MG PO BID (Reported) Albuterol HFA (Proair HFA) 8.5 Gm Hfa.aer.ad 2 PUFF IH BID (Reported) Aspirin (Aspirin) 81 Mg Tablet 81 MG PO DAILY (Reported) Atorvastatin Calcium (Atorvastatin Calcium) 40 Mg Tablet 40 MG PO DAILY ( Reported) Cholecalciferol (Vitamin D3) (Vitamin D3) 5,000 Unit Tablet 5,000 UNIT PO DAILY (Reported) Colchicine (Colcrys) 0.6 Mg Tablet 0.6 MG PO BID Prescribed by: MISTY PALENCIA MD Cyanocobalamin (Vitamin B-12) (Vitamin B-12) 1,000 Mcg Tablet 1,500 MCG PO DAILY (Reported) Levofloxacin (Levaquin) 500 Mg Tablet 500 MG PO DAILYAC Prescribed by: MISTY PALENCIA MD Loratadine (Claritin) 10 Mg Capsule 10 MG PO DAILY (Reported) Magnesium Oxide (Mag-Oxide) 400 Mg Tablet 400 MG PO DAILY (Reported) Metformin HCl (Metformin HCl ER) 500 Mg [id number] 500 MG PO BID (Reported) Metoprolol Tartrate (Metoprolol Tartrate) 50 Mg Tablet 50 MG PO BID (Reported) Multivits-Min/FA/Lycopene/Lut (Centrum Silver Tablet) 1 Each Tablet 1 TABLET PO DAILY (Reported) [place]-3 Fatty Acids/Fish Oil ([place] 3 1,000 mg Softgel) 1 Each Capsule 1 CAPSULE PO DAILY (Reported) Omeprazole (Omeprazole) 20 Mg Capsule.dr 20 MG PO BID Take 1 capsule by mouth before BREAKFAST Prescribed by: MISTY PALENCIA MD Oxybutynin Chloride (Oxybutynin Chloride) 5 Mg Tablet 5 MG PO BID (Reported) Sulfasalazine (Sulfasalazine) 500 Mg Tablet 1,000 MG PO BID (Reported) As needed Albuterol Sulfate (Proventil HFA Inhaler) 6.7 Gm Hfa.aer.ad 2 PUFF INH Q4 PRN PRN For Wheezing (Reported) Ibuprofen (Ibuprofen) 200 Mg Capsule 200 MG PO QID PRN PRN For Pain Prescribed by: MISTY PALENCIA MD Ibuprofen (Ibuprofen) 600 Mg Tablet 600 MG PO QID PRN PRN For Pain Prescribed by: MISTY PALENCIA MD Meclizine (Bonine) 25 Mg Tab.chew 25 MG PO TID PRN PRN For Dizziness (Reported) Nitroglycerin SL (Nitroglycerin SL) 0.4 Mg Tab.subl 0.4 MG PO PRN For Chest Pain (Reported) Miscellaneous Medications Iron (Iron) 18 Mg Tablet 65 MG PO (Reported) Additional med instructions Please take colchicine 0.6 mg twice a day if you continue to have diarrhea, then stop this medicine, instead taking ibuprofen 600mg every 8hours for 14days, then followed by 200mg for 7days. Please take Ibuprofen with Omeprazole twice a day and after meal. Stop taking if you feel heart burn, stomach pain, noticed bloody stools/black stools Please take Levofloxacin for pneumonia, 2more days Followup Plan Disposition: home Follow-up plan Please see [facility] Director for follow up until you set up appointment at [facility] We will set up appointment with new doctor at [facility] until you establish care at [facility] Discharge Diet: Heart Healthy Discharge Activity: No restrictions Patient Instructions You were hospitalized with chest pain, found to have water surrounding your heart in the sac of the heart. You were also treated for urinary tract infection and pneumonia. Please follow medicine instruction as above. Please return to hospital, ER if you feel shortness of breath, persistent chest pain. Follow-up Provider: Latonia Calvert MD Follow-up with PCP in: 3 weeks Provider: [facility] Follow-up in: 1 week Time spent 65min Misty Palencia MD Aug 13, 2016 09:43
--- NOTE | 2016-08-13 14:33 | PROG NOTE ---
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 INTERVAL HISTORY: Overnight, the patient reports she is continuing to feel better. She has no fevers, chills or sweats. She has minimal shortness of breath with exertion but none at baseline. No significant cough or GI symptoms. PHYSICAL EXAMINATION: Reveals an afebrile woman, temperature 36.4, pulse 66, respiratory rate 20, blood pressure 120/68, saturating well on room air and in no acute distress. Her oral cavity is benign. Lungs quite clear posteriorly. No significant decreased breath sounds at the bases. Cardiac tones without rub or murmur. Abdomen benign. LABORATORIES: Include a white count of 8100, sed rate is remaining greater than 140. Creatinine 0.95. Alk phos slightly up at 212. Other LFTs normal. Albumin 3.5. Procalcitonin 0.13. LDH slightly up 195. LACY negative. Additional serologic studies are pending. Urine grew Enterococcus but blood cultures were negative. IMPRESSION: This patient appears to have pleural effusions and pericarditis. This could be secondary to her rheumatic fever or idiopathic pericarditis. It is also possible it is related to her recent cardiac event and that she has some form of Sravani syndrome. In any event, I am not impressed that she has any significant infection even though she does have Enterococcus is in the urine and there was initial concerns about community-acquired pneumonia. RECOMMENDATIONS: 1. The patient has already completed her amoxicillin for the Enterococcus in the urine. 2. She is in the process of finishing up a five day course of levo directed at possible community-acquired pneumonia, though I think that is not the correct diagnosis at this point, but we will go ahead and finish. 3. Followup per Cardiology. 4. ID will go ahead and sign off. Thank you very much for involving us in this fascinating case.
--- NOTE | 2016-08-13 15:25 | NUR ---
Discharge Patient left floor via wheelchair at 1515 to be driven home by son. All d/c information discussed with patient including follow up appointments and medications. Patient verbalized understanding to only take ibuprofen if colchicine continues to cause diarrhea. Patient made own appointment for [facility] clinic in [place] for August 27 at 0930, she was told they would refer her to a pole truck driver during that appointment. Hospitalist aware. IV d/c'd intact. All belongings left with patient.
== END 2016-08-13 15:15 | disposition home or self-care (01) | DRG 194 ==
LOC: SED 08:07 → OBSVTOIN 11:55 → MOC 11:55
PROVIDERS: ADMIT Internal Medicine Infectious Disease; ATTEND Internal Medicine Infectious Disease
PROC: 30233N1 Transfusion of Nonautologous Red Blood Cells into Peripheral Vein, Percutaneous Approach (ICD-10-PCS; principal; 2016-08-12)
DX: J18.9 Pneumonia, unspecified organism (principal); I24.1 Dressler's syndrome; N39.0 Urinary tract infection, site not specified; I51.81 Takotsubo syndrome; I31.3 Pericardial effusion (noninflammatory); D62 Acute posthemorrhagic anemia; J44.9 Chronic obstructive pulmonary disease, unspecified; E11.9 Type 2 diabetes mellitus without complications; I25.10 Atherosclerotic heart disease of native coronary artery without angina pectoris; M06.9 Rheumatoid arthritis, unspecified; I25.2 Old myocardial infarction; Z79.51 Long term (current) use of inhaled steroids; I10 Essential (primary) hypertension; Z79.82 Long term (current) use of aspirin; Z87.891 Personal history of nicotine dependence; Z79.84 Long term (current) use of oral hypoglycemic drugs